=== PATIENT | female | born 1985 | race Caucasian/White ===

== ENCOUNTER 2017-08-26 17:14 | Emergency (ER) | payer MEDICAID ==
--- NOTE | 2017-08-26 18:02 | UC ---
Respiratory Complaint HPI - HPI Summary HPI Summary: 32 yo WF c/o worsening chest discomfort associated with productive cough with pleuritic CP x 1 week that started originally with URI 2 weeks prior but has been worsening steadily. - History of Current Complaint Chief Complaint: UCRespiratory Stated Complaint: URI Time Seen by Provider: 08/26/17 17:47 Hx Last Menstrual Period: current Onset/Duration: Gradual Onset, Lasting Weeks Severity Initially: Moderate Severity Currently: Moderate Pain Intensity: 0 - Allergies/Home Medications Allergies/Adverse Reactions: Allergies Allergy/AdvReac Type Severity Reaction Status Date / Time No Known Allergies Allergy Verified 08/26/17 17:31 Home Medications: Home Medications Acetaminophen/Dextromethorphan [Daytime Cold & Cough Liquid] 1 liq PO DAILY PRN 08/26/17 [History Confirmed 08/26/17] guaiFENesin [Mucinex] 600 mg PO DAILY PRN 08/26/17 [History Confirmed 08/26/17] PMH/Surg Hx/FS Hx/Imm Hx Previously Healthy: Yes - Surgical History Surgical History: Yes Surgery Procedure, Year, and Place: T&A, 2010, [facility] - Social History Alcohol Use: None Substance Use Type: None Smoking Status (MU): Never Smoked Tobacco - Immunization History Most Recent Influenza Vaccination: Not the Season Review of Systems Constitutional: Negative Skin: Negative Eyes: Negative ENT: Negative Respiratory: Cough, Other - B/L lower rib pains with cough Cardiovascular: Negative Gastrointestinal: Negative Genitourinary: Negative Motor: Negative Neurovascular: Negative Musculoskeletal: Negative Neurological: Negative Psychological: Negative Is Patient Immunocompromised?: No All Other Systems Reviewed And Are Negative: Yes Physical Exam Triage Information Reviewed: Yes Appearance: Ill-Appearing, Obese Vital Signs: Initial Vital Signs Temp 36.8 C 08/26/17 17:36 Pulse 84 08/26/17 17:36 Resp 18 08/26/17 17:36 BP 199/113 08/26/17 17:36 Pulse Ox 95 08/26/17 17:36 Eye Exam: Normal ENT Exam: Normal Dental Exam: Normal Neck exam: Normal Neck: Positive: 1 Respiratory: Positive: Rhonchi - Diffuse, Wheezing - expiratory Cardiovascular Exam: Normal Abdominal Exam: Normal Musculoskeletal Exam: Normal Neurological Exam: Normal Psychological Exam: Normal Skin Exam: Normal UC Diagnostic Evaluation - Laboratory O2 Sat by Pulse Oximetry: 95 Respiratory Course/Dx - Course Course Of Treatment: Pt may be developing bronchoPNA- will tx with Levaquin. Pt has no hx/ of HTN BP re-check was 160/98 but pt is acutely ill - Differential Dx/Diagnosis Provider Diagnoses: Bronchopneumonia. Elevated BP without dx of HTN- due to acute illness Discharge - Discharge Plan Condition: Stable Disposition: HOME Prescriptions: Levofloxacin TAB* [Levaquin TAB*] 750 mg PO DAILY 7 Days #7 tab Patient Education Materials: Acute Bronchitis (ED) Referrals: Fermin Roblero MD [Primary Care Provider] - Additional Instructions: take medication as directed. Please re-check your blood pressure with your PCP after your acute illness resolves in 1-2 weeks
[2017-08-26 18:04] VITALS: BP 160/98
== END 2017-08-26 18:25 | disposition home or self-care (01) ==
LOC: UCEAST 17:14
DX: J18.0 Bronchopneumonia, unspecified organism (principal); R03.0 Elevated blood-pressure reading, without diagnosis of hypertension
CPT/HCPCS: 99202; G0463

== ENCOUNTER 2017-09-23 16:21 | Emergency (ER) | payer MEDICAID, OTHER ==
[2017-09-23 17:04] VITALS: BP 193/114
--- NOTE | 2017-09-23 21:36 | UC ---
Franklin Vidales Nikita, scribed for Braeden Champagne MD on 09/23/17 at 1719 . Abdominal Pain Female HPI - HPI Summary HPI Summary: This patient is a 32 year old F presenting to [facility] with a chief complaint of intermittent R flank pain since yesterday. The CC is described as a sudden onset of pain and intermittent, starting in her R upper back, radiating to her R flank, and more frequent since 0400 today. The patient rates the pain 10/10 in severity at onset and has decreased to 5-6/10 currently. Symptoms aggravated by nothing. Symptoms alleviated by nothing. Patient reports nausea during severe pain. Patient denies dysuria, vomiting, diarrhea, urinary frequency, abdominal pain, constipation, vaginal bleeding or discharge. LMP was 2 weeks ago. - History of Current Complaint Chief Complaint: UCAbdominalPain Stated Complaint: SIDE ABDOMINAL AND PELVIC PAIN Time Seen by Provider: 09/23/17 17:10 Hx Obtained From: Patient Hx Last Menstrual Period: 2 wks ago Onset/Duration: Sudden Onset, Still Present Timing: Intermittent Episodes Lasting: Severity Initially: Severe - 10/10 Severity Currently: Moderate - 5-6/10 Pain Intensity: 10 Pain Scale Used: 0-10 Numeric Location: Other - upper back Radiates: Yes Radiates to: Flank - R Aggravating Factor(s): Nothing Alleviating Factor(s): Nothing Associated Signs and Symptoms: Positive: Other: - Patient reports nausea during severe pain. Patient denies dysuria, vomiting, diarrhea, urinary frequency, abdominal pain, constipation, vaginal bleeding or discharge. Allergies/Adverse Reactions: Allergies Allergy/AdvReac Type Severity Reaction Status Date / Time No Known Allergies Allergy Verified 09/23/17 17:04 Home Medications: Home Medications NK [No Home Medications Reported] 09/23/17 [History Confirmed 09/23/17] PMH/Surg Hx/FS Hx/Imm Hx Cardiovascular History: Hypertension Respiratory History: Other Other Respiratory History: No asthma - Surgical History Surgical History: Yes Surgery Procedure, Year, and Place: T&A, 2010, [facility] - Family History Known Family History: Positive: Hypertension, Diabetes - Social History Alcohol Use: None Substance Use Type: None Smoking Status (MU): Never Smoked Tobacco - Immunization History Most Recent Influenza Vaccination: Not the Season Review of Systems Gastrointestinal: Abdominal Pain - intermittent, R-sided, Nausea, Other - denies vomiting, diarrhea Genitourinary: Other - denies dysuria All Other Systems Reviewed And Are Negative: Yes Physical Exam - Summary Physical Exam Summary: VITAL SIGNS: Reviewed. GENERAL: ~Patient is a well-developed and nourished FEMALE who is lying comfortable in the stretcher. ~Patient is not in any acute respiratory distress. HEAD AND FACE: Normocephalic EYES: PERRLA, EOMI x 2. EARS: Hearing grossly intact. MOUTH: Oropharynx within normal limits. NECK: Supple, trachea is midline, no adenopathy, no JVD, no carotid bruit. CHEST: Symmetric, no tenderness at palpation LUNGS: Clear to auscultation bilaterally. No wheezing or crackles. CVS: Regular rate and rhythm, S1 and S2 present, no murmurs or gallops appreciated. ABDOMEN: Soft, non-tender. Bowel sounds are normal. No abdominal abnormal pulsations. EXTREMITIES: Full ROM in all major joints, no edema, no cyanosis or clubbing. NEURO: Alert and oriented x 3. No acute neurological deficits. Speech is normal and follows commands. SKIN: Dry and warm Triage Information Reviewed: Yes Vital Signs: Initial Vital Signs Temp 99.4 F 09/23/17 17:01 Pulse 82 09/23/17 17:01 Resp 18 09/23/17 17:01 BP 193/114 09/23/17 17:01 Pulse Ox 98 09/23/17 17:01 Abd Pain Female Course/Dx - Course Course Of Treatment: The patient was found to have increased BP in UC. The patient will be discharged to the ED for further workup. The patient denies ambulance and will go to the ED with her mother via car. Plan of care was discussed with the patient, and patient understands and agrees. All questions were answered to patient satisfaction. - Differential Dx/Diagnosis Differential Diagnosis: Constipation, Ovarian Cyst, Renal Colic, Urinary Tract Infection, Other - flank pain Provider Diagnoses: flank pain Discharge - Sign-Out/Discharge Documenting (check all that apply): Discharge - Discharge Plan Condition: Stable Disposition: HOME Patient Education Materials: Flank Pain (ED) Referrals: Fermin Roblero MD [Primary Care Provider] - Additional Instructions: Patient will be discharged to the ED for further assessment. - Billing Disposition and Condition Condition: STABLE Disposition: HOME The documentation as recorded by the Franklin ling Nikita accurately reflects the service I personally performed and the decisions made by me, Braeden Champagne MD.
== END 2017-09-23 17:40 | disposition home or self-care (01) ==
LOC: UCEAST 16:21
DX: M54.6 Pain in thoracic spine (principal); R11.0 Nausea; I10 Essential (primary) hypertension
CPT/HCPCS: 81003; 99212; G0463

== ENCOUNTER 2017-09-23 18:11 | Emergency (ER) | payer MEDICAID, OTHER ==
[2017-09-23 19:12] LABS: Urine Appearance Cloudy; Urine Blood Negative (Negative); Urine Color Yellow; Urine Ketones Negative (Negative); Urine Protein Negative (Negative); Urine Urobilinogen Negative (Negative)
[2017-09-23 19:17] LABS: Hematocrit 35 % (35-47); Hemoglobin 11.2 g/dl (12.0-16.0); Mean Corpuscular HGB Conc 32 g/dl (31-36); Mean Corpuscular Hemoglobin 23 pg (27-31); Mean Corpuscular Volume 72 fL (80-97); Mean Platelet Volume 7.3 um3 (7.4-10.4); Platelet Count 302 10^3/ul (150-450); Red Blood Count 4.83 10^6/ul (4.0-5.4); Red Cell Distribution Width 19 % (10.5-15); White Blood Count 10.2 10^3/ul (3.5-10.8)
[2017-09-23 19:48] LABS: ABS Basophils 0.1 10^3/ul (0-0.2); ABS Eosinophils 0.4 10^3/ul (0-0.6); ABS Lymphocytes 1.8 10^3/ul (1.0-4.8); ABS Monocytes 0.5 10^3/ul (0-0.8); ABS Neutrophils 7.5 10^3/ul (1.5-7.7); ABS Nucleated RBC 0 10^3/ul; Eosinophil % 3.7 % (0-6); Lymphocyte % 17.2 % (25-47); Nucleated Red Blood Cells % 0.1
[2017-09-23] MEDS ORDERED: NS 0.9% 1000 ML* 1,000 ML IV ONE (20:25)
[2017-09-23] MEDS ORDERED: cefTRIAXone(*) 1 GM in NS 0.9% 50 ML* 50 ML IVPB ONE (20:25)
--- NOTE | 2017-09-23 20:31 | ED ---
GI/ HPI - HPI Summary HPI Summary: 32-year-old female presents with right-sided abdominal pain for the past day. She states she has had a decreased appetite but now appetite is normal. She denies any nausea or vomiting. She denies any diarrhea or constipation. She denies any pain with urination or hematuria. She denies any vaginal discharge. She is not sexual active. She has never had this pain before. pain is intermittent. Sometimes it radiates to her right flank. She denies any previous abdominal surgeries or kidney stones. She denies any fevers. nothing makes the pain better or worst. She denies any chest pain or SOB. - History of Current Complaint Chief Complaint: EDAbdPain Time Seen by Provider: 09/23/17 20:13 Stated Complaint: ABD PAIN Hx Last Menstrual Period: 2 wks ago Pain Intensity: 4 - Allergy/Home Medications Allergies/Adverse Reactions: Allergies Allergy/AdvReac Type Severity Reaction Status Date / Time No Known Allergies Allergy Verified 09/23/17 17:04 PMH/Surg Hx/FS Hx/Imm Hx Endocrine/Hematology History: Denies: Hx Diabetes, Hx Thyroid Disease Cardiovascular History: Reports: Hx Hypertension Respiratory History: Denies: Hx Asthma, Hx Chronic Obstructive Pulmonary Disease (COPD) GI History: Denies: Hx Ulcer - Surgical History Surgery Procedure, Year, and Place: T&A, 2010, [facility] Infectious Disease History: No Infectious Disease History: Denies: Hx Clostridium Difficile, Hx Hepatitis, Hx Human Immunodeficiency Virus (HIV), Hx of Known/Suspected MRSA, Hx Shingles, Hx Tuberculosis, Traveled Outside the [place] in Last 30 Days - Social History Alcohol Use: None Substance Use Type: Reports: None Smoking Status (MU): Never Smoked Tobacco Review of Systems Negative: Fever Negative: Chest Pain Negative: Shortness Of Breath Positive: Abdominal Pain. Negative: Vomiting, Diarrhea, Nausea Negative: dysuria, flank pain All Other Systems Reviewed And Are Negative: Yes Physical Exam Triage Information Reviewed: Yes Vital Signs On Initial Exam: Initial Vitals Temp Pulse Resp BP Pulse Ox 98.5 F 85 16 191/69 98 09/23/17 18:14 09/23/17 18:14 09/23/17 18:14 09/23/17 18:14 09/23/17 18:14 Vital Signs Reviewed: Yes Appearance: Positive: Well-Appearing Skin: Positive: Warm, Dry Head/Face: Positive: Normal Head/Face Inspection Eyes: Positive: Normal, EOMI, DICK, Conjunctiva Clear ENT: Positive: Normal ENT inspection, Pharynx normal, TMs normal Respiratory/Lung Sounds: Positive: Clear to Auscultation, Breath Sounds Present Cardiovascular: Positive: Normal, RRR Abdomen Description: Positive: Soft, Other: - mild tenderness RLQ, no rebound, neg obturator sign. Negative: CVA Tenderness (R), CVA Tenderness (L) Bowel Sounds: Positive: Present Musculoskeletal: Positive: Normal Neurological: Positive: Normal Psychiatric: Positive: Normal Diagnostics - Vital Signs Vital Signs Temp Pulse Resp BP Pulse Ox 09/23/17 20:24 93 94 09/23/17 20:22 192/99 09/23/17 20:09 97.3 F 81 24 163/110 97 09/23/17 18:14 98.5 F 85 16 191/69 98 - Laboratory Lab Results: Lab Results 09/23/17 09/23/17 09/23/17 Range/Units 18:55 19:02 19:02 WBC 10.2 (3.5-10.8) 10^3/ul RBC 4.83 (4.0-5.4) 10^6/ul Hgb 11.2 L (12.0-16.0) g/dl Hct 35 (35-47) % MCV 72 L (80-97) fL MCH 23 L (27-31) pg MCHC 32 (31-36) g/dl RDW 19 H (10.5-15) % Plt Count 302 (150-450) 10^3/ul MPV 7.3 L (7.4-10.4) um3 Neut % (Auto) 73.7 (38-83) % Lymph % (Auto) 17.2 L (25-47) % [place] % (Auto) 4.5 (0-7) % Eos % (Auto) 3.7 (0-6) % Baso % (Auto) 0.9 (0-2) % Absolute Neuts (auto) 7.5 (1.5-7.7) 10^3/ul Absolute Lymphs (auto) 1.8 (1.0-4.8) 10^3/ul Absolute Monos (auto) 0.5 (0-0.8) 10^3/ul Absolute Eos (auto) 0.4 (0-0.6) 10^3/ul Absolute Basos (auto) 0.1 (0-0.2) 10^3/ul Absolute Nucleated RBC 0 10^3/ul Nucleated RBC % 0.1 Large Platelets Present Polychromasia 1+ Hypochromasia 1+ Anisocytosis 1+ Sodium 137 (133-145) mmol/L Potassium 3.9 (3.5-5.0) mmol/L Chloride 102 (101-111) mmol/L Carbon Dioxide 28 (22-32) mmol/L Anion Gap 7 (2-11) mmol/L BUN 13 (6-24) mg/dL Creatinine 0.89 (0.51-0.95) mg/dL Est GFR ( Amer) 95.1 (>60) Est GFR (Non-Af Amer) 74.0 (>60) BUN/Creatinine Ratio 14.6 (8-20) Glucose 83 (70-100) mg/dL Lactic Acid (0.5-2.0) mmol/L Calcium 9.5 (8.6-10.3) mg/dL Total Bilirubin 0.40 (0.2-1.0) mg/dL AST 14 (13-39) U/L ALT 11 (7-52) U/L Alkaline Phosphatase 63 (34-104) U/L C-Reactive Protein 54.29 H (< 5.00) mg/L Total Protein 7.6 (6.4-8.9) g/dL Albumin 4.2 (3.2-5.2) g/dL Globulin 3.4 (2-4) g/dL Albumin/Globulin Ratio 1.2 (1-3) Amylase 34 (29-103) U/L Lipase 16 (11.0-82.0) U/L Urine Color Yellow Urine Appearance Cloudy Urine pH 6.0 (5-9) Ur Specific [place] 1.020 (1.010-1.030) Urine Protein Negative (Negative) Urine Ketones Negative (Negative) Urine Blood Negative (Negative) Urine Nitrate Negative (Negative) Urine Bilirubin Negative (Negative) Urine Urobilinogen Negative (Negative) Ur Leukocyte Esterase Trace A (Negative) Urine WBC (Auto) 2+(11-20/hpf) A (Absent) Urine RBC (Auto) 2+(6-10/hpf) A (Absent) Ur Squamous Epith Cells Present A (Absent) Amorphous Crystals Present A (Absent) Urine Bacteria 1+ A (Absent) Urine Glucose Negative (Negative) 09/23/17 Range/Units 19:02 WBC (3.5-10.8) 10^3/ul RBC (4.0-5.4) 10^6/ul Hgb (12.0-16.0) g/dl Hct (35-47) % MCV (80-97) fL MCH (27-31) pg MCHC (31-36) g/dl RDW (10.5-15) % Plt Count (150-450) 10^3/ul MPV (7.4-10.4) um3 Neut % (Auto) (38-83) % Lymph % (Auto) (25-47) % Hartley % (Auto) (0-7) % Eos % (Auto) (0-6) % Baso % (Auto) (0-2) % Absolute Neuts (auto) (1.5-7.7) 10^3/ul Absolute Lymphs (auto) (1.0-4.8) 10^3/ul Absolute Monos (auto) (0-0.8) 10^3/ul Absolute Eos (auto) (0-0.6) 10^3/ul Absolute Basos (auto) (0-0.2) 10^3/ul Absolute Nucleated RBC 10^3/ul Nucleated RBC % Large Platelets Polychromasia Hypochromasia Anisocytosis Sodium (133-145) mmol/L Potassium (3.5-5.0) mmol/L Chloride (101-111) mmol/L Carbon Dioxide (22-32) mmol/L Anion Gap (2-11) mmol/L BUN (6-24) mg/dL Creatinine (0.51-0.95) mg/dL Est GFR ( Amer) (>60) Est GFR (Non-Af Amer) (>60) BUN/Creatinine Ratio (8-20) Glucose (70-100) mg/dL Lactic Acid 0.8 (0.5-2.0) mmol/L Calcium (8.6-10.3) mg/dL Total Bilirubin (0.2-1.0) mg/dL AST (13-39) U/L ALT (7-52) U/L Alkaline Phosphatase (34-104) U/L C-Reactive Protein (< 5.00) mg/L Total Protein (6.4-8.9) g/dL Albumin (3.2-5.2) g/dL Globulin (2-4) g/dL Albumin/Globulin Ratio (1-3) Amylase (29-103) U/L Lipase (11.0-82.0) U/L Urine Color Urine Appearance Urine pH (5-9) Ur Specific [place] (1.010-1.030) Urine Protein (Negative) Urine Ketones (Negative) Urine Blood (Negative) Urine Nitrate (Negative) Urine Bilirubin (Negative) Urine Urobilinogen (Negative) Ur Leukocyte Esterase (Negative) Urine WBC (Auto) (Absent) Urine RBC (Auto) (Absent) Ur Squamous Epith Cells (Absent) Amorphous Crystals (Absent) Urine Bacteria (Absent) Urine Glucose (Negative) Result Diagrams: 09/23/17 19:02 09/23/17 19:02 Lab Statement: Any lab studies that have been ordered have been reviewed, and results considered in the medical decision making process. - CT abd CT Interpretation: No Acute Changes CT Interpretation Completed By: Radiologist - Ultrasound No standard instances Ultrasound Interpretation: No Acute Changes - IMPRESSION: 1. LIMITED STUDY. 2. THE RIGHT OVARY IS NOT VISUALIZED. THE LEFT OVARY IS NOT WELL-VISUALIZED, WITH A QUESTIONABLE LEFT OVARIAN CYST. Ultrasound Interpretation Completed By: Radiologist NONI Course/Dx - Course Course Of Treatment: 32-year-old female presents with right-sided abdominal pain for the past day. She states she has had a decreased appetite but now appetite is normal. She denies any nausea or vomiting. She denies any diarrhea or constipation. She denies any pain with urination or hematuria. She denies any vaginal discharge. She is not sexual active. She has never had this pain before. pain is intermittent. Sometimes it radiates to her right flank. She denies any previous abdominal surgeries or kidney stones. She denies any fevers. nothing makes the pain better or worst. She denies any chest pain or SOB. on exam mild tenderness RLQ, neg CVA tenderness. neg obturator. labs wbc normal. crp elevated. urine shows uti. transvaginal u/s unable to visualize. CT normal. will treat as pyelo with flank pain. blood pressure elvated in ED so gave dose of HTCZ and will have follow up with primary. patient understand and agrees with plan. - Diagnoses Differential Diagnoses - Female: Appendicitis, Ovarian Cyst, Ovarian Torsion, Pyelonephritis, Urinary Tract Infection Provider Diagnoses: Pyelonephritis, Elevated blood pressure reading Discharge - Sign-Out/Discharge Documenting (check all that apply): Discharge - Discharge Plan Condition: Good Disposition: HOME Prescriptions: Ciprofloxacin TAB* [Cipro 500 MG TAB*] 500 mg PO BID #20 tab Patient Education Materials: Kidney Infection (ED) Print Language: TELUGU Referrals: Fermin Roblero MD [Primary Care Provider] - Additional Instructions: Take antibiotic twice a day for 10 days, starting tomorrow Take Tylenol or ibuprofen every 6 hours as needed for pain and fever Return to ED if develop any new or worsening symptoms - Billing Disposition and Condition Condition: GOOD Disposition: HOME
[2017-09-23] MEDS ORDERED: Iohexol 300* (CONTRAST) 10 ML SDV IV ONE (20:45)
--- NOTE | 2017-09-23 22:01 | RAD ---
HISTORY: Right lower quadrant pain COMPARISONS: None TECHNIQUE: Multiple transverse and longitudinal ultrasound images were obtained of the pelvis using grayscale and color Doppler imaging using the endovaginal transducer. FINDINGS: The study is limited by patient body habitus. UTERUS: The uterus measures 7.6 x 4 x 2.9 cm. The uterus is normal in shape, size, contour, and echotexture. Cervical nabothian cysts are noted. ENDOMETRIUM: The endometrial stripe is smooth. The endometrium measures 1.1 cm in thickness. CUL-DE-SAC: There is no free fluid within the cul-de-sac. RIGHT OVARY: The right ovary is not well-visualized LEFT OVARY: The left ovary is not well-visualized. There may be left ovarian cyst measuring 2.5 cm. BLADDER: The bladder is not well visualized. OTHER: None IMPRESSION: 1. LIMITED STUDY. 2. THE RIGHT OVARY IS NOT VISUALIZED. THE LEFT OVARY IS NOT WELL-VISUALIZED, WITH A QUESTIONABLE LEFT OVARIAN CYST.
[2017-09-23] MEDS ORDERED: cefTRIAXone 1000 MG SYRINGE IVPB ONCE IVPB ONE ×2 (23:00)
[2017-09-23 23:36] VITALS: BP 196/99
[2017-09-23] MEDS ORDERED: Hydrochlorothiazide TAB* 25 MG PO ONE (23:37)
--- NOTE | 2017-09-24 07:13 | RAD ---
CLINICAL HISTORY: Right lower quadrant pain COMPARISON: None TECHNIQUE: Multiple contiguous axial CT scans were obtained of the abdomen and pelvis after the administration of intravenous contrast. Coronal and sagittal multiplanar reformations are submitted for review. Oral contrast was not administered. Delayed images were obtained through the abdomen and pelvis. FINDINGS: Evaluation is somewhat limited by beam hardening artifact from body habitus and by patient motion. LUNG BASES: The lung bases are clear. LIVER: The liver is diffusely low in attenuation compared to the spleen. There are no focal hepatic parenchymal masses. The liver measures 20 cm in long axis. BILE DUCTS: There is no intrahepatic or extrahepatic biliary dilatation. GALLBLADDER: The gallbladder is normal, without pericholecystic inflammatory change. PANCREAS: The pancreas is normal, without mass or ductal dilatation. SPLEEN: The spleen is at the upper limits of normal in size and is homogeneous in attenuation.. UPPER GI TRACT: Evaluation of the gastrointestinal tract is limited by incomplete gastric distention. The upper GI tract is unremarkable. SMALL BOWEL AND MESENTERY: The small bowel is normal in contour, course, and caliber. There is no obstruction or dilatation. COLON: The colon is normal in contour, course, caliber. There is no pericolonic inflammatory change. There is a tubular, vermiform, hollow viscus that is blind ending, and originates from the cecum, consistent with a normal appendix. There is no periappendiceal inflammatory change. This is best seen on axial images 64 through 71. ADRENALS: Normal bilaterally. KIDNEYS: The kidneys are normal in shape, size, contour, and axis. There is no hydronephrosis or nephrolithiasis. BLADDER: The bladder is incompletely distended but is grossly normal. PELVIC ORGANS: The uterus and adnexa are grossly normal for technique. AORTA: The aorta is normal. IVC: Unremarkable LYMPH NODES: There are mildly enlarged bilateral inguinal lymph nodes measuring up to 1.3 cm in short axis. ABDOMINAL WALL: There is no evidence for abdominal wall hernia. BONES AND SOFT TISSUES: Unremarkable OTHER: None IMPRESSION: 1. HEPATOMEGALY WITH FATTY INFILTRATION OF THE LIVER. 2. MILDLY ENLARGED BILATERAL INGUINAL LYMPH NODES. 3. NORMAL APPENDIX.
--- NOTE | 2017-09-27 09:38 | ED ---
Progress - Progress Note Progress Note: Radiology's final report revealed "impression #1 hepatomegaly with fatty infiltration of liver number to mildly enlarged bilateral inguinal lymph nodes # 3 normal appendix". Patient was discharged with diagnosis of UTI/pyelonephritis and started on Cipro. Her note indicate CT revealed "no acute changes" Left message to call to up-to-date CT results (make her aware of liver findings ) and follow-up symptoms as urine cx is "no growth". No further action at this time. Course/Dx - Course Course Of Treatment: 32-year-old female presents with right-sided abdominal pain for the past day. She states she has had a decreased appetite but now appetite is normal. She denies any nausea or vomiting. She denies any diarrhea or constipation. She denies any pain with urination or hematuria. She denies any vaginal discharge. She is not sexual active. She has never had this pain before. pain is intermittent. Sometimes it radiates to her right flank. She denies any previous abdominal surgeries or kidney stones. She denies any fevers. nothing makes the pain better or worst. She denies any chest pain or SOB. on exam mild tenderness RLQ, neg CVA tenderness. neg obturator. labs wbc normal. crp elevated. urine shows uti. transvaginal u/s unable to visualize. CT normal. will treat as pyelo with flank pain. blood pressure elvated in ED so gave dose of HTCZ and will have follow up with primary. patient understand and agrees with plan. - Diagnoses Provider Diagnoses: Pyelonephritis, Elevated blood pressure reading Discharge - Sign-Out/Discharge Documenting (check all that apply): Post-Discharge Follow Up - Discharge Plan Condition: Good Disposition: HOME Prescriptions: Ciprofloxacin TAB* [Cipro 500 MG TAB*] 500 mg PO BID #20 tab Patient Education Materials: Kidney Infection (ED) Print Language: SRI LANKAN Referrals: Fermin Roblero MD [Primary Care Provider] - Additional Instructions: Take antibiotic twice a day for 10 days, starting tomorrow Take Tylenol or ibuprofen every 6 hours as needed for pain and fever Return to ED if develop any new or worsening symptoms - Billing Disposition and Condition Condition: GOOD Disposition: HOME
== END 2017-09-23 23:55 | disposition home or self-care (01) ==
LOC: ED 18:11
DX: N12 Tubulo-interstitial nephritis, not specified as acute or chronic (principal); R03.0 Elevated blood-pressure reading, without diagnosis of hypertension; R10.84 Generalized abdominal pain; Z86.79 Personal history of other diseases of the circulatory system
CPT/HCPCS: 36415; 74177; 76830; 80053; 81003; 81015; 82150; 83605; 83690; 84702; 85025; 85060; 86140; 87086; 99284; A9270-GY; J0696; Q9967

== ENCOUNTER 2018-06-25 16:34 | Emergency (ER) | payer OTHER ==
[2018-06-25 16:49] VITALS: BP 201/105
--- NOTE | 2018-06-25 17:04 | UC ---
UC Dental HPI - HPI Summary HPI Summary: right lower wism tooth pain with swelling-tooth is broken---has been getting some pain relief with evolve - History of Current Complaint Chief Complaint: UCDentalProblem Stated Complaint: DENTAL PAIN Time Seen by Provider: 06/25/18 16:59 Hx Obtained From: Patient Hx Last Menstrual Period: now ?: No Onset/Duration: Sudden Onset, Lasting Days, Still Present Pain Intensity: 4 Pain Scale Used: 0-10 Numeric Aggravating Factor(s): Nothing Alleviating Factor(s): OTC Meds Related History: Previous Dental Care on Same Tooth, Swelling - Allergies/Home Medications Allergies/Adverse Reactions: Allergies Allergy/AdvReac Type Severity Reaction Status Date / Time No Known Allergies Allergy Verified 06/25/18 16:49 PMH/Surg Hx/FS Hx/Imm Hx Previously Healthy: No Cardiovascular History: Hypertension - Surgical History Surgical History: Yes Surgery Procedure, Year, and Place: T&A, 2010, [facility] - Family History Known Family History: Positive: None - Social History Occupation: Unemployed Lives: With Family Alcohol Use: None Substance Use Type: None Smoking Status (MU): Never Smoked Tobacco - Immunization History Most Recent Influenza Vaccination: Not the Season Review of Systems All Other Systems Reviewed And Are Negative: Yes Constitutional: Positive: Negative Skin: Positive: Negative Eyes: Positive: Negative ENT: Positive: Dental Pain Respiratory: Positive: Negative Cardiovascular: Positive: Negative Gastrointestinal: Positive: Negative Genitourinary: Positive: Negative Motor: Positive: Negative Neurovascular: Positive: Negative Musculoskeletal: Positive: Negative Neurological: Positive: Negative Psychological: Positive: Negative Is Patient Immunocompromised?: No Physical Exam Triage Information Reviewed: Yes Appearance: Well-Appearing, Pain Distress, Obese Vital Signs: Initial Vital Signs Temp 97.7 F 06/25/18 16:46 Pulse 87 06/25/18 16:46 Resp 24 06/25/18 16:46 BP 201/105 06/25/18 16:46 Pulse Ox 97 06/25/18 16:46 Vital Signs Reviewed: Yes Eye Exam: Normal Eyes: Positive: Conjunctiva Clear ENT Exam: Normal ENT: Positive: Normal ENT inspection, Hearing grossly normal, Pharynx normal, Dental tenderness, Uvula midline. Negative: Trismus, Muffled voice, Hoarse voice, Sinus tenderness Dental Exam: Other Dental: Positive: Percussion Tenderness @, Gross Decay/Caries @, Abscess @ Neck exam: Normal Neck: Positive: Supple, Nontender, No Lymphadenopathy Respiratory Exam: Normal Respiratory: Positive: Chest non-tender, Normal breath sounds, No respiratory distress, No accessory muscle use Cardiovascular Exam: Normal Cardiovascular: Positive: Pulses Normal, Brisk Capillary Refill Musculoskeletal Exam: Normal Musculoskeletal: Positive: Strength Intact, ROM Intact, No Edema Neurological Exam: Normal Neurological: Positive: Alert, Muscle Tone Normal Psychological Exam: Normal Skin Exam: Normal Dental Complaint Course/Dx - Course Course Of Treatment: clindamycin, naproxen, warm compress, follow with dentist, 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), pcp regarding hypertension - Differential Dx/Diagnosis Provider Diagnosis: Hypertension, Morbid obesity, Dental abscess Discharge - Sign-Out/Discharge Documenting (check all that apply): Patient Departure All imaging exams completed and their final reports reviewed: No Studies - Discharge Plan Condition: Stable Disposition: HOME Prescriptions: Clindamycin Cap(NF) [Clindamycin Cap 300 mg Cap(NF)] 300 mg PO QID #28 cap Naproxen TAB* [Naprosyn 250 mg TAB*] 500 mg PO Q12H PRN #30 tab PRN Reason: pain Patient Education Materials: Dental Abscess (ED), Hypertension (ED), Toothache (ED) Referrals: [facility] [Outside] - 3 Days [facility]YSICIAN REFERRAL [Outside] - 3 Days Alcides Escobedo MD [Medical Doctor] - 3 Days - Billing Disposition and Condition Condition: STABLE Disposition: Home
[2018-06-25] MEDS ORDERED: Clindamycin CAP* 150 MG PO ONE ×2 (17:12→17:13)
[2018-06-25] MEDS ORDERED: HYDROcodone/ACETAMIN 5-325 MG* 1 TAB PO ONE (17:16)
== END 2018-06-25 17:30 | disposition home or self-care (01) ==
LOC: UCEAST 16:34
DX: K04.7 Periapical abscess without sinus (principal); I10 Essential (primary) hypertension; E66.01 Morbid (severe) obesity due to excess calories
CPT/HCPCS: 99213; A9270-GY; G0463

== ENCOUNTER 2018-08-05 13:12 | Emergency (ER) | payer OTHER ==
[2018-08-05] MEDS ORDERED: Albuterol/Ipratropium NEB.SOL* Albuterol 2.5 MG/Ipratropium 0.5 MG 3 ML INH ONE (13:36)
--- NOTE | 2018-08-05 13:43 | UC ---
Respiratory Complaint HPI - HPI Summary HPI Summary: 33 yo, obese patient with c/o 3 days of cough, difficulty breathing. 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 - History of Current Complaint Chief Complaint: UCRespiratory Stated Complaint: RESP ISSUE Time Seen by Provider: 08/05/18 13:27 Hx Last Menstrual Period: current Pain Intensity: 0 - Allergies/Home Medications Allergies/Adverse Reactions: Allergies Allergy/AdvReac Type Severity Reaction Status Date / Time No Known Allergies Allergy Verified 08/05/18 13:31 PMH/Surg Hx/FS Hx/Imm Hx Previously Healthy: Yes - obesity Cardiovascular History: Hypertension - Surgical History Surgical History: Yes Surgery Procedure, Year, and Place: T&A, 2010, [facility] - Family History Known Family History: Positive: None, Cardiac Disease, Hypertension, Diabetes - Social History 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 Negative: Fever Skin: Positive: Negative Eyes: Positive: Negative ENT: Positive: Negative Respiratory: Positive: Negative, Cough. Negative: Shortness Of Breath Cardiovascular: Positive: Negative. Negative: Chest Pain Gastrointestinal: Positive: Negative Genitourinary: Positive: Negative Motor: Positive: Negative Neurovascular: Positive: Negative Musculoskeletal: Positive: Negative Neurological: Positive: Negative Psychological: Positive: Negative Is Patient Immunocompromised?: No Physical Exam - Summary Physical Exam Summary: Appearance: The patient is well-appearing, is in no pain or distress, and is well-nourished. Eyes: Conjunctiva are clear. Pupils are equal and reactive to light and accommodation. Extra ocular muscle movement is intact. ENT: The hearing is grossly normal, the pharynx is normal, and the TMs are normal. There is no muffled or hoarse voice. No stridor. Neck: The neck is supple and there is no lymphadenopathy. Respiratory: The chest is nontender to palpation and without crepitus. The lungs show an extended expiratory phase; rhonchi; no rales. Cardiovascular: Heart sounds reveal a regular rate and rhythm. There are no clicks, rubs or murmurs. There are no carotid bruits or thrills. Circulation is grossly intact. Abdomen: The abdomen is soft and nontender. There is no organomegaly. Bowel sounds are present and within normal limits. No point tenderness at McBurneys point. Musculoskeletal: Strength is intact. The patient moves all extremities. x. Neurological: The patient is alert. Motor and sensory are examination grossly intact. Speech is normal. Psychological: The patient displays age appropriate behavior Skin: Negative for rashes. Triage Information Reviewed: Yes Vital Signs: Initial Vital Signs Temp 98.8 F 08/05/18 13:27 Pulse 86 08/05/18 13:27 Resp 20 08/05/18 13:27 Pulse Ox 98 08/05/18 13:27 Diagnostic Evaluation - Laboratory O2 Sat by Pulse Oximetry: 98 Respiratory Course/Dx - Course Course Of Treatment: 33-year-old obese female with complaints of 3 days of continuous cough and wheezing getting worse. Patient denies history of asthma. Vital signs are stable and she is afebrile. My diagnosis is bronchitis with bronchospasm. I will treat her with albuterol, and a spacer. MEDICATIONS REVIEWED. BLOOD PRESSURE STATUES REVIEWED. Patient needs to recheck with primary care over the next month for follow up. - Differential Dx/Diagnosis Differential Diagnosis/HQI/PQRI: Asthma, Bronchitis, Influenza Provider Diagnosis: Bronchospasm with bronchitis, acute Discharge - Sign-Out/Discharge Documenting (check all that apply): Patient Departure All imaging exams completed and their final reports reviewed: No Studies - Discharge Plan Condition: Stable Disposition: HOME Prescriptions: Albuterol HFA INHALER* [Ventolin HFA Inhaler*] 1 - 2 puff INH Q4H PRN #1 mdi PRN Reason: Shortness Of Breath Inhaler, Assist Devices [Aerochamber Mv] 1 mis XX Q6HR #1 mis Patient Education Materials: Acute Bronchitis (ED), Bronchospasm (ED) Referrals: Fermin Roblero MD [Primary Care Provider] - Additional Instructions: WE DISCUSSED: PLEASE SEEK CARE AT THE EMERGENCY DEPARTMENT IF SYMPTOMS WORSEN OR IF NEW SYMPTOMS DEVELOP. FOLLOW UP WITH YOUR PRIMARY CARE PHYSICIAN IF CONDITION CONTINUES BEYOND 3 DAYS WITHOUT IMPROVEMENT. YOUR DIAGNOSIS IS: BRONCHOSPASM, BRONCHITIS; ELEVATED BLOOD PRESSURE YOUR PRESCRIPTION RECOMMENDATION IS: ALBUTEROL AND A SPACER OTHER INSTRUCTIONS: Over the next month you need to recheck your blood pressure to make sure it's not more than 120/80. Your blood pressure today is 160/90. . Use the spacer, 2 puffs 4 times a day. Stay away from any smoke or other irritants. STAND UNDER SHOWER STREAM TO LOOSEN SECRETIONS. USE A VAPORIZOR. STAY AWAY FROM ANY SMOKE OR IRRITANTS. USE SALINE NASAL SPRAY TO KEEP FLOW OF MUCOUS FROM NOSTRILS AND SINUSES. CONSIDER USING NETI POT TO HELP WITH ALLERGIES AND CONGESTION IN THE NOSE. USE THIS THREE TIMES A WEEK. YOU CAN GET THIS AT [facility] IN [place] OR VARIOUS DRUGSTORES. DRINK LOTS OF WARM FLUIDS USEFUL HOME REMEDIES: WARM WATER GARGLES, WITH TSP OF SALT PER 8 OUNCES OF WATER, GARGLE FOR A FEW SECONDS AND SPIT OUT; GARGLE AND SPIT OUT; EVERY THREE HOURS. AND/OR: WARM WATER OR TEA, HONEY AND LEMON; 2-3 CUPS A DAY. RE-CHECK IN 1O DAYS NEEDED. RE-CHECK SOONER IF INCREASED PAIN OR TEMPERATURE. - Billing Disposition and Condition Condition: STABLE Disposition: Home
[2018-08-05 13:44] VITALS: BP 160/90
[2018-08-05 13:54] LABS: Influenza A Molecular NEGATIVE (Negative); Influenza B Molecular NEGATIVE (Negative)
== END 2018-08-05 14:39 | disposition home or self-care (01) ==
LOC: UCEAST 13:12
DX: J20.9 Acute bronchitis, unspecified (principal); I10 Essential (primary) hypertension
CPT/HCPCS: 99212; A9270-GY; G0463

== ENCOUNTER → 2019-03-01 10:30 | Day surgery (SDC) | payer OTHER ==
[~2019-03-01 10:30] MED LIST: Buffered Lidocaine 1% SYRIN* 1 ML/SYRINGE INTRADERM ONE; Flumazenil* 0.1 MG/ML 5 ML MDV ONE; KETAMINE HCL* 50 MG/ML 10 ML VIAL ONE; Lactated Ringers 1000 ML Bag* 1,000 ML IV SCH; Lidocaine 4% TOPICAL* 50 ML TOP.SOLN ONE; Midazolam* 1 MG/ML 2 ML VIAL (2 MG) ONE; Naloxone* 0.4 MG/ML 1 ML VIAL IV PRN
[2019-03-01 14:01] VITALS: BP 131/70
--- NOTE | 2019-03-01 20:00 | PRO ---
CC: Dr. Mary Joseph * ESOPHAGOGASTRODUODENOSCOPY REPORT: DATE OF PROCEDURE: 03/01/19 - [facility] PRIMARY CARE PHYSICIAN: Dr. Mary Joseph. INDICATION FOR PROCEDURE: Pre-bariatric eval. PROCEDURE PERFORMED: Complete esophagogastroduodenoscopy with biopsies. MEDICATIONS GIVEN: Please see anesthesia record. DESCRIPTION OF PROCEDURE: After the EGD procedure including the risks, benefits , and alternatives with the risks not limited to perforation, surgery, missed lesions, and/or were explained to the patient, written informed consent was obtained, IV medication was given, and a bite-block was placed between the teeth. I initially attempted to pass the adult gastroscope through the oropharynx; however, she was quite gaggy and I switched to the pediatric XP scope. This was much better facilitating esophageal intubation. I was able to successfully intubate the esophagus. The esophagus was normal in appearance. The GE junction and Z-line were intact. There was no large hiatal hernia associated with this. The scope was advanced through the lower esophageal sphincter into the stomach. Direct views were normal on antegrade and retroflex views. Biopsies were taken for CLOtesting. The scope was then advanced through the widely patent pylorus into the duodenal bulb, C-loop, distal duodenum. These were normal in appearance. The scope was then removed from the patient. She tolerated the procedure well. She returned to the recovery room in stable condition. IMPRESSION: 1. Complete esophagogastroduodenoscopy with biopsies. 2. Normal esophagogastroduodenoscopy. Biopsy taken for CLOtesting. RECOMMENDATIONS: Proceed with bariatric evaluation with Dr. Pimentel. [id number]/[facility] #: [id number] [facility]ITAL[facility]
== END | disposition home or self-care (01) ==
LOC: OR 10:30
PROVIDERS: ATTEND Internal Medicine Gastroenterology
DX: Z01.818 Encounter for other preprocedural examination (principal); E66.01 Morbid (severe) obesity due to excess calories; Z68.45 Body mass index [BMI] 70 or greater, adult; I15.8 Other secondary hypertension; I10 Essential (primary) hypertension; G47.33 Obstructive sleep apnea (adult) (pediatric)
CPT/HCPCS: 81025; 87077; J2250

== ENCOUNTER 2019-04-11 19:41 | Emergency (ER) | payer OTHER ==
--- OUTSIDE RECORDS SUMMARY | 2019-04-11 19:48 | XMS REPORT | Continuity of Care Document ---
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 Problems Description No Information Available Social History Type Date Description Comments Sex Unknown Tobacco Use Start: Unknown Patient has never smoked Smoking Status Reviewed: 01/01/19 Patient has never smoked Allergies, Adverse Reactions, Alerts Description No Known Drug Allergies Medications Active Medications SIG Qnty Indications Ordering Date Provider Rupert Echeverria, 325(65Fe) mg Tablets MD Yanet Amlodipine Besylate Mary Joseph, 10mg Tablets Hydrochlorothiazide Mary Joseph, 25mg Tablets Lisinopril Mary Joseph, 20mg Tablets Vitamin D3 Juwan, [id number] Capsules MD Yanet Albuterol Sulfate HFA inhale 1 to 2 Unknown 108(90Base) puffs by mouth mcg/Act Aerosol every 4 hours if needed for shortness of breath Immunizations Description No Information Available Vital Signs Date Vital Result Comment 01/01/2019 8:42am Height 61.5 inches 5'1.50" Weight 431.00 lb BP Systolic 147 mmHg BP Diastolic 73 mmHg Heart Rate 79 /min BMI (Body Mass Index) 80.1 kg/m2 Results Test Date Facility Test Result H/L Range Note Laboratory test finding 03/01/2019 [facility] Clotest SEE RESULT BELOW 1 1 SEE RESULT BELOW Name: ANTONIETTA GONZALEZ : [address]: Sammy Steinberg DO Acct: [id number] Unit: [id number] AGE: 33 Location: OR Re03/01/19 SEX: F Status: REG SDC SPEC: [id number] JENNIFER: 03/01/19-1305 [facility] DR: Sammy Steinberg DO REQ: [id number] RECD: 03/01/19 STATUS: FRANKLYN DELGADILLO DR: Mary Joseph MD _ SOURCE: GAS ANTRUM SPDESC: ORDERED: Clotest Procedure Result Reported Site Clotest Final 03/02/19912 ML Clotest Negative * - Main Lab . END OF REPORT DEPARTMENT OF PATHOLOGY, [address] [place] [address] Reilly Villa M.D. Director [facility] # [id number] SEE RESULT BELOW Name: ANTONIETTA GONZALEZ : [address]: Sammy Steinberg DO Acct: [id number] Unit: [id number] AGE: 33 Location: OR Re03/01/19 SEX: F Status: REG SDC SPEC: [id number] JENNIFER: 03/01/19-[address]: Sammy Steinberg DO REQ: [id number] RECD: 03/01/19-1317 STATUS: FRANKLYN DELGADILLO DR: Mary Joseph MD _ SOURCE: GAS ANTRUM SPDESC: ORDERED: Clotest Procedure Result Reported Site Clotest Final 03/02/19922 ML Clotest Negative * ML - Main Lab . END OF REPORT DEPARTMENT OF PATHOLOGY, [address] [place] [address] Reilly Villa M.D. Director [facility] # [id number] Procedures Description No Information Available Medical Devices Description No Information Available Encounters Type Date Location Provider Dx Diagnosis Office Visit 01/01/2019 Gastroenterology Sammy Steinberg, Z01.818 Encounter for other [facility] DO preprocedural examination I15.8 Other secondary hypertension E66.01 Morbid (severe) obesity due to excess calories G47.30 Sleep apnea, unspecified Z68.45 Body mass index (BMI) 70 or greater, adult Assessments Date Code Description Provider 01/01/2019 Z01.818 Encounter for other preprocedural examination Sammy Steinberg, DO 01/01/2019 I15.8 Other secondary hypertension Sammy Steinberg, DO 01/01/2019 E66.01 Morbid (severe) obesity due to excess calories Sammy Steinberg, DO 01/01/2019 G47.30 Sleep apnea, unspecified Sammy Steinberg DO 01/01/2019 Z68.45 Body mass index (BMI) 70 or greater, adult Sammy Steinberg DO Plan of Treatment No Information Available Functional Status Description No Information Available Mental Status Description No Information Available Referrals Description No Information Available
[2019-04-11 20:07] VITALS: BP 157/92
--- NOTE | 2019-04-11 20:47 | UC ---
Dental HPI - HPI Summary HPI Summary: Patient is a 34yo female presenting with right lower tooth pain x 3 days. Patient notes headache, pain in the right ear and right lower jaw, and tenderness of right side of neck. Denies fever, chills, nausea, vomiting, and drainage from the tooth. Patient states she took 3 doses over two days ago of an unknown antibiotic that was left over from her 's prescription when he had a tooth abscess. - History of Current Complaint Chief Complaint: UCDentalProblem Stated Complaint: TOOTH PAIN Hx Obtained From: Patient Hx Last Menstrual Period: January 2019 Onset/Duration: Gradual Onset, Lasting Days Pain Intensity: 8 Pain Scale Used: 0-10 Numeric - Allergies/Home Medications Allergies/Adverse Reactions: Allergies Allergy/AdvReac Type Severity Reaction Status Date / Time No Known Allergies Allergy Verified 04/11/19 20:07 Home Medications: Home Medications Cyanocobalamin TAB* [Vitamin B12 TAB*] 1,000 mcg PO DAILY 04/11/19 [History Confirmed 04/11/19] Poly Iron* 1 tab PO DAILY 04/11/19 [History Confirmed 04/11/19] metFORMIN* [Glucophage 500 MG TAB *] 500 mg PO TID 04/11/19 [History Confirmed 04/11/19] PMH/Surg Hx/FS Hx/Imm Hx Endocrine History: Diabetes Cardiovascular History: Hypertension - Surgical History Surgical History: Yes Surgery Procedure, Year, and Place: T&A, 2010, [facility] - Family History Known Family History: Positive: None, Cardiac Disease, Hypertension, Diabetes - Social History Alcohol Use: None Alcohol Amount: 1 DRINK YEARLY Substance Use Type: None Smoking Status (MU): Never Smoked Tobacco - Immunization History Most Recent Influenza Vaccination: Not the Season Review of Systems All Other Systems Reviewed And Are Negative: Yes Constitutional: Positive: Negative. Negative: Fever, Chills, Fatigue Eyes: Positive: Negative ENT: Positive: Dental Pain, Ear Ache. Negative: Sore Throat, Nasal Discharge, Sinus Congestion, Sinus Pain/Tenderness Respiratory: Positive: Negative Cardiovascular: Positive: Negative Gastrointestinal: Positive: Negative. Negative: Vomiting, Nausea Neurological: Positive: Headache Physical Exam Triage Information Reviewed: Yes Appearance: Well-Appearing, No Pain Distress, Obese Vital Signs: Initial Vital Signs Temp 97.8 F 04/11/19 20:01 Pulse 90 10/09/19 20:01 Resp 22 04/11/19 20:01 BP 157/92 04/11/19 20:01 Pulse Ox 100 04/11/19 20:01 Vital Signs Reviewed: Yes Eyes: Positive: Conjunctiva Clear ENT: Positive: Hearing grossly normal, Pharynx normal, TMs normal, Dental tenderness - tenderness of tooth #32. the tooth is also fractured. no drainage or fluctance noted. mild erythema and tenderness of gumline., Uvula midline. Negative: Nasal congestion, Nasal drainage Neck: Positive: Supple, Tenderness @ - right anterior cervical lymph node, Enlarged Nodes @ - right anterior cervical node Respiratory Exam: Normal Respiratory: Positive: Lungs clear, Normal breath sounds, No respiratory distress, No accessory muscle use. Negative: Crackles, Rhonchi, Stridor, Wheezing Cardiovascular Exam: Normal Cardiovascular: Positive: RRR. Negative: Tachycardia Neurological: Positive: Alert Psychological: Positive: Age Appropriate Behavior Skin Exam: Normal Dental Complaint Course/Dx - Course Course Of Treatment: I instructed the patient to take Augmentin as prescribed to prevent her recurrent dental abscess from progressing. I educated her on not taking left over antibiotics and to finish her entire prescription. Directed her to follow up with a dentist as soon as possible for further treatment. Instructed her to return or go to the ED if symptoms worsen. Patient voiced understanding and agreed to the treatment plan. - Differential Dx/Diagnosis Provider Diagnosis: Fractured tooth, Tooth ache Discharge ED - Sign-Out/Discharge Documenting (check all that apply): Patient Departure All imaging exams completed and their final reports reviewed: No Studies - Discharge Plan Condition: Stable Disposition: HOME Prescriptions: Amoxicillin/Clavulanate TAB* [Augmentin TAB 875*] 875 mg PO BID #14 tab Patient Education Materials: Dental Abscess (ED), Toothache (ED) Referrals: Mary Joseph MD [Primary Care Provider] - If Needed Additional Instructions: As discussed, Take Augmentin as prescribed to prevent spread of possible infection of your tooth. Be sure to complete the entire course of antibiotics, even if your symptoms begin to resolve. You may continue to take ibuprofen as directed for pain relief. It is important that you follow up with a dentist as soon as possible for further treatment. Go to the emergency room if you experience fever, nausea, vomiting, or worsening pain. - Billing Disposition and Condition Condition: STABLE Disposition: Home
== END 2019-04-11 21:15 | disposition home or self-care (01) ==
LOC: UCEAST 19:41
DX: S02.5XXA Fracture of tooth (traumatic), initial encounter for closed fracture (principal); E11.9 Type 2 diabetes mellitus without complications; E66.9 Obesity, unspecified; I10 Essential (primary) hypertension; Z79.84 Long term (current) use of oral hypoglycemic drugs; X58.XXXA Exposure to other specified factors, initial encounter; Y92.9 Unspecified place or not applicable
CPT/HCPCS: 99213; G0463

== ENCOUNTER 2019-04-12 21:32 | Emergency (ER) | payer OTHER ==
[2019-04-12 21:46] VITALS: BP 161/94
--- NOTE | 2019-04-12 21:57 | UC ---
[facility] Dental HPI - HPI Summary HPI Summary: Pt presents with c/o worsening right dental pain. Pt was seen by Rosalinda ELKINS yesterday and given amox and told to take ibuprofen for pain managements. Pt states that ibuprofen is not helping with pain. - History of Current Complaint Chief Complaint: UCDentalProblem Stated Complaint: DENTAL PAIN Time Seen by Provider: 04/12/19 21:51 Hx Obtained From: Patient Hx Last Menstrual Period: January 2019 ?: No Onset/Duration: Sudden Onset, Still Present, Worse Since - one day Severity: Severe Pain Intensity: 10 Aggravating Factor(s): Heat, Chewing - Allergies/Home Medications Allergies/Adverse Reactions: Allergies Allergy/AdvReac Type Severity Reaction Status Date / Time No Known Allergies Allergy Verified 04/12/19 21:44 PMH/Surg Hx/FS Hx/Imm Hx Previously Healthy: Yes - Surgical History Surgical History: Yes Surgery Procedure, Year, and Place: T&A, 2010, [facility] - Family History Known Family History: Positive: None, Cardiac Disease, Hypertension, Diabetes - Social History Occupation: Unemployed Lives: With Family Alcohol Use: None Alcohol Amount: 1 DRINK YEARLY Substance Use Type: None Smoking Status (MU): Never Smoked Tobacco Have You Smoked in the Last Year: No - Immunization History Most Recent Influenza Vaccination: Not the Season Review of Systems All Other Systems Reviewed And Are Negative: Yes Constitutional: Positive: Negative Skin: Positive: Negative Eyes: Positive: Negative ENT: Positive: Dental Pain Respiratory: Positive: Negative Cardiovascular: Positive: Negative Gastrointestinal: Positive: Negative Genitourinary: Positive: Negative Motor: Positive: Negative Neurovascular: Positive: Negative Musculoskeletal: Positive: Negative Neurological: Positive: Negative Psychological: Positive: Negative Is Patient Immunocompromised?: No Physical Exam Triage Information Reviewed: Yes Appearance: Pain Distress, Obese Vital Signs: Initial Vital Signs Temp 98.6 F 04/12/19 21:40 Pulse 87 04/12/19 21:40 Resp 30 04/12/19 21:40 BP 161/94 04/12/19 21:40 Pulse Ox 100 04/12/19 21:40 Vital Signs Reviewed: Yes Eye Exam: Normal ENT: Positive: Hearing grossly normal Dental: Positive: Percussion Tenderness @, Dental Fracture @ Neck exam: Normal Respiratory: Positive: No respiratory distress Cardiovascular Exam: Normal Musculoskeletal Exam: Normal Neurological Exam: Normal Psychological Exam: Normal Skin Exam: Normal Dental Complaint Course/Dx - Course Course Of Treatment: I discussed with the pt the need to follow up with a dental care provider as soon as possible. Pt verbalized understanding and agreed to plan of care - Differential Dx/Diagnosis Differential Diagnosis/Dx: Dental Abscess, Dental Caries, Fractured Tooth Provider Diagnosis: Pain, dental Discharge ED - Sign-Out/Discharge Documenting (check all that apply): Patient Departure All imaging exams completed and their final reports reviewed: No Studies - Discharge Plan Condition: Stable Disposition: HOME Prescriptions: Lidocaine 2% VISCOUS* [Xylocaine 2% Viscous*] 15 ml SWISH SPIT Q4H PRN #1 btl PRN Reason: Pain - Mild traMADol TAB* [Ultram*] 50 mg PO Q12H PRN #8 tab MDD 2 PRN Reason: Pain - Moderate Patient Education Materials: Toothache (ED) Referrals: Mray Joseph MD [Primary Care Provider] - If Needed Additional Instructions: Please follow up with a dental care provider as soon as possible. - Billing Disposition and Condition Condition: STABLE Disposition: Home
== END 2019-04-12 22:04 | disposition home or self-care (01) ==
LOC: UCCORT 21:32
DX: K08.89 Other specified disorders of teeth and supporting structures (principal)
CPT/HCPCS: 99212; G0463

== ENCOUNTER 2019-05-29 17:51 | Emergency (ER) | payer OTHER ==
--- OUTSIDE RECORDS SUMMARY | 2019-05-29 17:58 | XMS REPORT | Continuity of Care Document ---
:1985 External Reference #:[id number] Author Name Ermelinda Gordon NP (transmitted by agent of provider Guillermina Hardy) Address [address] [facility], [address] [place] [address] Care Team Providers Name Role Phone Mary Joseph MD - Internal Medicine Care Team Information Payment Poster [phone] Problems Description No Information Available Social History Type Date Description Comments Sex Unknown ETOH Use Rarely consumes alcohol Tobacco Use Start: Unknown Patient has never smoked Recreational Drug Use Never Used Drugs Smoking Status Reviewed: 05/11/19 Patient has never smoked Exercise Type/Frequency Walks daily Allergies, Adverse Reactions, Alerts Description No Known Drug Allergies Medications Active Medications SIG Qnty Indications Ordering Date Provider Hydrochlorothiazide take 1 tablet Unknown 25mg Tablets by mouth once daily Amlodipine Besylate take 1 tablet Unknown 10mg Tablets by mouth once daily Lisinopril Mary Joseph 20mg Tablets Megestrol Acetate 2 tabs by 240ml Unknown 40mg/ml mouth twice a Suspension day Metformin HCL Kashif Ly 500mg Tablets MD Arlene Vitamin B-12 ER 1 by mouth Unknown 1000mcg Tablets ER every day [id number] 1 by mouth Unknown 1mg Chewtabs every day Immunizations Description No Information Available Vital Signs Date Vital Result Comment 05/11/2019 2:45pm Height 61 inches 5'1" Weight 442.00 lb Heart Rate 93 /min BP Systolic Sitting 118 mmHg BP Diastolic Sitting 88 mmHg O2 % BldC Oximetry 95 % BMI (Body Mass Index) 83.5 kg/m2 02/22/2019 2:49pm Height 61 inches 5'1" Weight 446.00 lb Heart Rate 90 /min BP Systolic Sitting 114 mmHg Lue regu cuff (forearm) BP Diastolic Sitting 72 mmHg Lue regu cuff (forearm) Respiratory Rate 24 /min O2 % BldC Oximetry 92 % BMI (Body Mass Index) 84.3 kg/m2 Results Description No Information Available Procedures Date Code Description Status 04/10/2019 31980 Diffusing Capacity Completed 04/10/2019 19560 Plethysmography Determination Lung Volumes & Per Airway Completed Resist 04/10/2019 50458 Pulmonary Function><Bronchodil Completed 01/05/2019 81075 Polysomnography Sleep Staging 4+ Parameters Completed Medical Devices Description No Information Available Encounters Type Date Location Provider Dx Diagnosis Office Visit 05/11/2019 [facility] G47.33 Obstructive sleep 3:00p [facility] apnea (adult) [facility] (pediatric) E66.2 Morbid (severe) obesity with alveolar hypoventilation R53.83 Other fatigue Office Visit 03/13/2019 3:20p [facility] Shashi Allred, D50.9 Iron deficiency [facility] AT M.D. anemia, [place] unspecified E66.9 Obesity, unspecified N85.8 Other specified noninflammatory disorders of uterus Office Visit 02/27/2019 9:00a [facility] Shashi Allred D50.9 Iron deficiency [facility] AT .D. anemia, [place] unspecified N92.1 Excessive and frequent menstruation with irregular cycle R19.7 Diarrhea, unspecified E66.9 Obesity, unspecified Office Visit 02/22/2019 [facility] G47.33 Obstructive sleep 3:00p [facility] apnea (adult) [facility] (pediatric) R53.83 Other fatigue E66.01 Morbid (severe) obesity due to excess calories Z68.45 Body mass index (BMI) 70 or greater, adult Assessments Date Code Description Provider 05/11/2019 G47.33 Obstructive sleep apnea (adult) (pediatric) Ermelinda Gordon NP 05/11/2019 E66.2 Morbid (severe) obesity with alveolar Ermelinda Gordon NP hypoventilation 05/11/2019 R53.83 Other fatigue Ermelinda Gordon NP 04/10/2019 E66.2 Morbid (severe) obesity with alveolar Hellen Quinteros MD hypoventilation 03/13/2019 D50.9 Iron deficiency anemia, unspecified Shashi Allred M.D. 03/13/2019 E66.9 Obesity, unspecified Shashi Allred M.D. 03/13/2019 N85.8 Other specified noninflammatory disorders of Shashi Allred M.D. uterus 02/27/2019 D50.9 Iron deficiency anemia, unspecified Shashi Allred M.D. 02/27/2019 N92.1 Excessive and frequent menstruation with Shashi Allred M.D. irregular cycle 02/27/2019 R19.7 Diarrhea, unspecified Shashi Allred M.D. 02/27/2019 E66.9 Obesity, unspecified Shashi Allred M.D. 02/22/2019 G47.33 Obstructive sleep apnea (adult) (pediatric) Ermelinda Gordon NP 02/22/2019 R53.83 Other fatigue Ermelinda Gordon NP 02/22/2019 E66.01 Morbid (severe) obesity due to excess Ermelinda Gordon NP calories 02/22/2019 Z68.45 Body mass index (BMI) 70 or greater, adult Ermelinda Gordon NP 01/05/2019 G47.33 Obstructive sleep apnea (adult) (pediatric) Hellen Quinteros MD Plan of Treatment Future Appointment(s):07/11/2019 3:00 pm - Ermelinda Gordon NP at [facility]05/11/2019 - Ermelinda Gordon NPG47.33 Obstructive sleep apnea (adult) (pediatric)New Orders:Sleep Study, Ordered: 02/19Follow up:2 monthsRecommendations:It is very, very important that you use your CPAP nightly given the extent of your sleep apnea. Please call me if you are having any difficulty and we can work together to solve your issues. I am goingto order an in-lab titration study for a new kind of machine that might be more comfortable for you to use. They will call you from the sleep lab to schedule this study. If you have any further questions, please call the [facility] at [phone] If you have any sleepiness while driving you MUST avoid operating a vehicle or machinery. If you feel tired while driving, assembler for puller over hand and take a nap or switch drivers. If you know you are sleepy and need to go somewhere, arrange for a ride oruse public transportation. It is very important to not risk your safety or the safety of others.E66.2 Morbid (severe) obesity with alveolar [id number] Other fatigue Functional Status Description No Information Available Mental Status Description No Information Available Referrals Description No Information Available
--- NOTE | 2019-05-29 18:38 | UC ---
Dental HPI - HPI Summary HPI Summary: The patient is a 34-year-old female with the onset of right upper dental pain that radiates up towards her right eye that started yesterday. She has not been febrile. She denies any facial swelling. She has had no chest pain or shortness of breath. She denies having a heart murmur. 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 [facility] - Surgical History Surgical History: Yes Surgery Procedure, Year, and Place: T&A, 2010, [facility] - Family History Known Family History: Positive: Cardiac Disease, Hypertension, Diabetes, Other - brain CA - Social History Alcohol Use: None Alcohol Amount: 1 DRINK YEARLY Substance Use Type: None Smoking Status (MU): Never Smoked Tobacco Have You Smoked in the Last Year: No - Immunization History Most Recent Influenza Vaccination: Not the Season Review of Systems All Other Systems Reviewed And Are Negative: Yes Constitutional: Positive: Negative Skin: Positive: Negative Eyes: Positive: Negative ENT: Positive: Dental Pain Respiratory: Positive: Negative Cardiovascular: Positive: Negative Gastrointestinal: Positive: Negative Genitourinary: Positive: Negative Motor: Positive: Negative Neurovascular: Positive: Negative Musculoskeletal: Positive: Negative Neurological: Positive: Negative Psychological: Positive: Negative Physical Exam Triage Information Reviewed: Yes Appearance: Well-Appearing, No Pain Distress, Well-Nourished Vital Signs: Initial Vital Signs Temp 98.4 F 05/29/19 18:01 Pulse 80 05/29/19 18:01 Resp 20 05/29/19 18:01 Pulse Ox 97 05/29/19 18:01 Vital Signs Reviewed: Yes Eyes: Positive: Conjunctiva Clear ENT: Positive: Hearing grossly normal. Negative: Nasal congestion, Nasal drainage, Trismus, Muffled voice, Hoarse voice Dental Exam: Other - abysmal dentition/tooth in question rotted to gum line Neck: Positive: Supple, Nontender, No Lymphadenopathy Respiratory: Positive: Lungs clear, Normal breath sounds, No respiratory distress, No accessory muscle use Cardiovascular: Positive: RRR, No Murmur Musculoskeletal: Positive: ROM Intact, No Edema Neurological: Positive: Alert Psychological Exam: Normal Skin Exam: Normal Dental Complaint Course/Dx - Differential Dx/Diagnosis Provider Diagnosis: Dentalgia Discharge ED - Sign-Out/Discharge Documenting (check all that apply): Patient Departure All imaging exams completed and their final reports reviewed: No Studies - Discharge Plan Condition: Stable Disposition: HOME Prescriptions: Naproxen [Naproxen 500 mg tab] 500 mg PO BID PRN #20 tablet PRN Reason: Pain Penicillin VK 500 MG TAB(NF) [Penicillin VK 500 mg Tab] 500 mg PO QID #28 tab Patient Education Materials: Toothache (ED) Referrals: Mary Joseph MD [Primary Care Provider] - If Needed Additional Instructions: continue to attempt to make arrangements to see a dentist recheck for new or worsening symptoms or if not improved in 3-4 days - Billing Disposition and Condition Condition: STABLE Disposition: Home
== END 2019-05-29 19:00 | disposition home or self-care (01) ==
LOC: UCEAST 17:51
DX: K08.89 Other specified disorders of teeth and supporting structures (principal); I10 Essential (primary) hypertension
CPT/HCPCS: 99212; G0463

== ENCOUNTER 2020-06-28 17:15 | Inpatient (IN) ==
[2020-06-28] MEDS ORDERED: methylPREDNISolone 125 mg 2 ML VIAL IV ONE (17:51)
[2020-06-28] MEDS ORDERED: Magnesium Sulfate 2 gm BAG 2 GM/50 ML BAG IVPB ONE (17:52)
[2020-06-28] MEDS ORDERED: NS 0.9% 1000 ml BAG 1,000 ML IV ONE (17:52)
[2020-06-28] MEDS ORDERED: Albuterol HFA INHALER 8 gm MDI INH ONE (17:52)
[2020-06-28 18:10] LABS: ABS Lymphocytes 0.9 10^3/ul (1.0-4.8); ABS Monocytes 0.5 10^3/ul (0-0.8); ABS Neutrophils 4.7 10^3/ul (1.5-7.7); Hematocrit 37 % (35-47); Hemoglobin 11.9 g/dL (12.0-16.0); Lymphocyte % 14.7 %; Mean Corpuscular HGB Conc 32 g/dL (31-36); Mean Corpuscular Hemoglobin 24 pg (27-31); Mean Corpuscular Volume 74 fL (80-97); Mean Platelet Volume 8.5 fL (7.4-10.4); Platelet Count 200 10^3/uL (150-450); Red Blood Count 5.03 10^6 /uL (3.70-4.87); Red Cell Distribution Width 20 % (10-15)
[2020-06-28 18:15] LABS: Activated Partial Thrombo Time 32.5 seconds (26.0-38.0); INR 1.38 (0.82-1.09)
[2020-06-28 18:20] LABS: ALT 12 U/L (7-52); AST 37 U/L (13-39); Alkaline Phosphatase 37 U/L (34-104); Anion Gap 11 mmol/L (2-11); BUN/Creatinine Ratio 13.3 (8-20); Blood Urea Nitrogen 18 mg/dL (6-24); C Reactive Protein 233.81 mg/L (<8.01); CO2 Carbon Dioxide 25 mmol/L (22-32); Calcium 8.8 mg/dL (8.6-10.3); Chloride 99 mmol/L (101-111); EGFR African American 54.3 (>60); EGFR Non-African American 44.9 (>60); Glucose 96 mg/dL (70-100); Magnesium 2.2 mg/dL (1.9-2.7); Potassium 4.1 mmol/L (3.5-5.0); Sodium 135 mmol/L (135-145)
[2020-06-28 18:27] LABS: Troponin I 0.03 ng/mL (<0.03)
[2020-06-28 18:44] LABS: LDH 521 U/L (140-271)
[2020-06-28] MEDS ORDERED: Iodixanol (CONTRAST) 320 MG/ML 100 ML SDV IV ONE (19:51)
[2020-06-28 21:35] LABS: Troponin I 0.05 ng/mL (<0.03)
[2020-06-28] MEDS ORDERED: Remdesivir 5 MG/ML LIQ IV Vial 200 MG in NS 0.9% 250 ml 210 ML IV ONE (22:04)
[2020-06-28] MEDS ORDERED: Ondansetron 4 mg VIAL 2 MG/ML 2 ml VIAL IV PRN (22:06)
[2020-06-29 01:53] LABS: ALT 11 U/L (7-52); AST 36 U/L (13-39); Albumin 3.3 g/dL (3.2-5.2); Alkaline Phosphatase 32 U/L (34-104); Anion Gap 10 mmol/L (2-11); BUN/Creatinine Ratio 17.8 (8-20); Blood Urea Nitrogen 19 mg/dL (6-24); CO2 Carbon Dioxide 23 mmol/L (22-32); Calcium 7.9 mg/dL (8.6-10.3); Chloride 104 mmol/L (101-111); EGFR Non-African American 58.7 (>60); Globulin 3.4 g/dL (2-4); Glucose 132 mg/dL (70-100); Magnesium 2.6 mg/dL (1.9-2.7); Potassium 4.1 mmol/L (3.5-5.0); Sodium 137 mmol/L (135-145); Total Protein 6.7 g/dL (6.4-8.9)
[2020-06-29 02:37] LABS: Troponin I 0.03 ng/mL (<0.03)
[2020-06-29] MEDS: Enoxaparin 100 MG/ML SYR SUBCUT SCH ×2 (03:38→17:28)
[2020-06-29 03:56] LABS: ABS Lymphocytes 0.6 10^3/ul (1.0-4.8); ABS Monocytes 0.2 10^3/ul (0-0.8); ABS Neutrophils 3.2 10^3/ul (1.5-7.7); Hematocrit 34 % (35-47); Hemoglobin 10.9 g/dL (12.0-16.0); Mean Corpuscular HGB Conc 32 g/dL (31-36); Mean Corpuscular Hemoglobin 24 pg (27-31); Mean Corpuscular Volume 74 fL (80-97); Mean Platelet Volume 8.2 fL (7.4-10.4); Platelet Count 164 10^3/uL (150-450); Red Blood Count 4.59 10^6 /uL (3.70-4.87); Red Cell Distribution Width 20 % (10-15); White Blood Count 3.9 10^3/uL (3.5-10.8)
[2020-06-29] MEDS ORDERED: Dexamethasone IV 4 MG/ML VIAL 1 ml VIAL IV SLOW PU SCH (09:00)
[2020-06-29] MEDS ORDERED: Rocuronium 50 mg VIAL 10 mg/ml 5 ml VIAL (50 mg) ONE ×3 (09:52→11:10)
[2020-06-29] MEDS ORDERED: Succinylcholine 200 mg VIAL 20 mg/ml 10 ml VIAL (200 mg) ONE (09:52)
[2020-06-29] MEDS ORDERED: Etomidate 40 mg/20 ml (2 MG/ML) 20 ml VIAL (40 mg) ONE ×2 (09:56→10:11)
[2020-06-29] MEDS ORDERED: Midazolam 10 mg/10 ml VIAL 1 mg/ml 10 ml VIAL (10 mg) ONE ×2 (09:57→10:11)
[2020-06-29] MEDS ORDERED: fentaNYL 250 mcg/5 ml 50 MCG/ML 5 ml VIAL (250 MCG) ONE (10:11)
[2020-06-29] MEDS: Cisatracurium 100 MG in NS 0.9% 250 ml 200 ML IV SCH ×4 (12:30→23:43)
[2020-06-29 16:01] LABS: Hematocrit 36 % (35-47); Hemoglobin 11.4 g/dL (12.0-16.0); Mean Corpuscular HGB Conc 31 g/dL (31-36); Mean Corpuscular Hemoglobin 24 pg (27-31); Mean Corpuscular Volume 75 fL (80-97); Platelet Count 168 10^3/uL (150-450); Red Blood Count 4.86 10^6 /uL (3.70-4.87); Red Cell Distribution Width 19 % (10-15); White Blood Count 3.7 10^3/uL (3.5-10.8)
[2020-06-29 16:24] LABS: BUN/Creatinine Ratio 22.5 (8-20); Calcium 7.9 mg/dL (8.6-10.3); EGFR Non-African American 94.2 (>60); Magnesium 2.2 mg/dL (1.9-2.7); Phosphorus 3.3 mg/dL (2.5-5.0); Potassium 3.6 mmol/L (3.5-5.0)
[2020-06-29 16:26] LABS: ABS Lymphocytes 0.4 10^3/ul (1.0-4.8); ABS Monocytes 0.2 10^3/ul (0-0.8); ABS Neutrophils 3.1 10^3/ul (1.5-7.7); Lymphocyte % 10.7 %; Nucleated Red Blood Cells % 0.1
[2020-06-29] MEDS: cefTRIAXone 2 GM ADDV.VIAL 2 GM in NS 0.9% 100 ml BAG 100 ML IV SCH (17:08)
[2020-06-29] MEDS: Azithromycin 500 mg/250 ml NS 500 MG/250 ML BAG IVPB SCH (17:08)
[2020-06-29] MEDS: methylPREDNISolone SOD 40 mg/ml 1 ml VIAL IV SCH (17:28)
[2020-06-29] MEDS ORDERED: LORazepam 2 mg VIAL 1 ml IV PUSH PRN (20:02)
[2020-06-29] MEDS ORDERED: Lorazepam PYXIS KEY PRN (20:02)
[2020-06-29] MEDS ORDERED: Lorazepam PYXIS KEY ONE (20:06)
[2020-06-29] MEDS ORDERED: LORazepam 2 mg VIAL 1 ml ONE (20:07)
[2020-06-29] MEDS: fentaNYL INFUSION 50 MCG/ML 2,500 MCG/50 ML BAG IV SCH (21:29)
[2020-06-30] MEDS: Remdesivir 5 MG/ML LIQ IV Vial 100 MG in NS 0.9% 250 ml 230 ML IV SCH (01:53)
[2020-06-30] MEDS: methylPREDNISolone SOD 40 mg/ml 1 ml VIAL IV SCH ×3 (02:31→16:30)
[2020-06-30] MEDS: Enoxaparin 100 MG/ML SYR SUBCUT SCH ×2 (02:31→16:30)
[2020-06-30] MEDS: Cisatracurium 100 MG in NS 0.9% 250 ml 200 ML IV SCH ×5 (03:19→18:42)
[2020-06-30 05:31] LABS: Hematocrit 33 % (35-47); Hemoglobin 10.3 g/dL (12.0-16.0); Mean Corpuscular HGB Conc 32 g/dL (31-36); Mean Corpuscular Hemoglobin 24 pg (27-31); Mean Corpuscular Volume 75 fL (80-97); Mean Platelet Volume 8.6 fL (7.4-10.4); Platelet Count 174 10^3/uL (150-450); Red Blood Count 4.36 10^6 /uL (3.70-4.87); Red Cell Distribution Width 20 % (10-15); White Blood Count 6.6 10^3/uL (3.5-10.8)
[2020-06-30 05:55] LABS: Albumin 3.1 g/dL (3.2-5.2); BUN/Creatinine Ratio 20.7 (8-20); EGFR African American 90.2 (>60); EGFR Non-African American 74.5 (>60); Magnesium 2.2 mg/dL (1.9-2.7); Phosphorus 3.4 mg/dL (2.5-5.0); Potassium 4.2 mmol/L (3.5-5.0); Total Bilirubin 0.6 mg/dL (0.2-1.0); Total Protein 6.1 g/dL (6.4-8.9)
[2020-06-30] MEDS: Midazolam 50 MG VIAL IV DRIP 50 ML IV SCH ×5 (06:54→23:01)
[2020-06-30 06:59] LABS: ABS Lymphocytes 0.1 10^3/ul (1.0-4.8); ABS Monocytes 0.3 10^3/ul (0-0.8); ABS Neutrophils 6.1 10^3/ul (1.5-7.7); Lymphocyte % 1.7 %; Nucleated Red Blood Cells % 0.1
[2020-06-30] MEDS: Pantoprazole VIAL 40 MG VIAL IV SCH (09:06)
[2020-06-30] MEDS: Chlorhexidine MOUTHWASH 0.12% 15 ML UDC TOPICAL SCH ×5 (09:36→22:42)
[2020-06-30] MEDS: fentaNYL INFUSION 50 MCG/ML 2,500 MCG/50 ML BAG IV SCH ×2 (10:15→19:26)
[2020-06-30 13:59] LABS: Urine Appearance Cloudy; Urine Bilirubin Negative (Negative); Urine Blood Negative (Negative); Urine Color Yellow; Urine Glucose Negative (Negative); Urine Ketones Negative (Negative); Urine Nitrite Negative (Negative); Urine Protein 1+(30 mg/dL) (Negative); Urine Urobilinogen Negative (Negative)
[2020-06-30 14:05] LABS: Urine Bacteria Absent (Absent); Urine Red Blood Cell Trace(0-2/hpf) (Absent); Urine Squamous Epithelial Cell Present (Absent); Urine White Blood Cell Trace(0-5/hpf) (Absent)
[2020-06-30] MEDS: cefTRIAXone 2 GM ADDV.VIAL 2 GM in NS 0.9% 100 ml BAG 100 ML IV SCH (17:04)
[2020-06-30] MEDS: Azithromycin 500 mg/250 ml NS 500 MG/250 ML BAG IVPB SCH (18:22)
[2020-07-01] MEDS: methylPREDNISolone SOD 40 mg/ml 1 ml VIAL IV SCH ×3 (01:16→15:51)
[2020-07-01] MEDS: Chlorhexidine MOUTHWASH 0.12% 15 ML UDC TOPICAL SCH ×6 (01:16→21:15)
[2020-07-01] MEDS: Remdesivir 5 MG/ML LIQ IV Vial 100 MG in NS 0.9% 250 ml 230 ML IV SCH (02:00)
[2020-07-01] MEDS: Cisatracurium 100 MG in NS 0.9% 250 ml 200 ML IV SCH ×3 (02:02→19:25)
[2020-07-01] MEDS: Midazolam 50 MG VIAL IV DRIP 50 ML IV SCH ×4 (04:07→20:33)
[2020-07-01] MEDS: Enoxaparin 100 MG/ML SYR SUBCUT SCH ×2 (04:12→15:51)
[2020-07-01 05:02] LABS: Albumin 2.9 g/dL (3.2-5.2); Albumin/Globulin Ratio 0.9 (1-3); BUN/Creatinine Ratio 28.3 (8-20); EGFR African American 62.2 (>60); EGFR Non-African American 51.4 (>60); Globulin 3.4 g/dL (2-4); Potassium 4.6 mmol/L (3.5-5.0); Total Bilirubin 0.5 mg/dL (0.2-1.0); Total Protein 6.3 g/dL (6.4-8.9)
[2020-07-01] MEDS: Pantoprazole VIAL 40 MG VIAL IV SCH (05:48)
[2020-07-01] MEDS: Artificial Tear OPHTH.OINT 3.5 GM BOTH EYES PRN ×2 (05:48→15:57)
[2020-07-01] MEDS: fentaNYL INFUSION 50 MCG/ML 2,500 MCG/50 ML BAG IV SCH ×2 (08:25→20:33)
[2020-07-01] MEDS ORDERED: Furosemide 40 mg/4 ml IV VIAL IV ONE (12:11)
[2020-07-01] MEDS ORDERED: Furosemide 40 mg/4 ml IV VIAL ONE (12:18)
[2020-07-01] MEDS: Nystatin TOP POWDER 15 GM BTL TOPICAL SCH ×3 (12:20→20:08)
[2020-07-01] MEDS: cefTRIAXone 2 GM ADDV.VIAL 2 GM in NS 0.9% 100 ml BAG 100 ML IV SCH (15:41)
[2020-07-01] MEDS: Azithromycin 500 mg/250 ml NS 500 MG/250 ML BAG IVPB SCH (16:32)
[2020-07-01] MEDS ORDERED: Furosemide 40 mg/4 ml IV VIAL IV SLOW PU ONE (16:52)
[2020-07-01] MEDS ORDERED: Magnesium Sulfate 2 gm BAG 2 GM/50 ML BAG IVPB ONE (16:52)
[2020-07-01] MEDS ORDERED: Atropine 1 MG/ML INJ 1 ML VIAL IV PUSH PRN (20:52)
[2020-07-02] MEDS: Cisatracurium 100 MG in NS 0.9% 250 ml 200 ML IV SCH ×3 (00:11→10:16)
[2020-07-02] MEDS: Remdesivir 5 MG/ML LIQ IV Vial 100 MG in NS 0.9% 250 ml 230 ML IV SCH (00:52)
[2020-07-02] MEDS: methylPREDNISolone SOD 40 mg/ml 1 ml VIAL IV SCH ×3 (00:57→15:44)
[2020-07-02] MEDS: Artificial Tear OPHTH.OINT 3.5 GM BOTH EYES PRN (01:01)
[2020-07-02] MEDS: Chlorhexidine MOUTHWASH 0.12% 15 ML UDC TOPICAL SCH ×6 (01:03→20:44)
[2020-07-02] MEDS: Midazolam 50 MG VIAL IV DRIP 50 ML IV SCH ×5 (01:45→23:00)
[2020-07-02] MEDS: Enoxaparin 100 MG/ML SYR SUBCUT SCH ×2 (03:04→15:45)
[2020-07-02 05:01] LABS: ABS Lymphocytes 0.3 10^3/ul (1.0-4.8); ABS Monocytes 0.3 10^3/ul (0-0.8); ABS Neutrophils 6.1 10^3/ul (1.5-7.7); Hematocrit 30 % (35-47); Hemoglobin 9.4 g/dL (12.0-16.0); Lymphocyte % 4.1 %; Mean Corpuscular HGB Conc 31 g/dL (31-36); Mean Corpuscular Hemoglobin 23 pg (27-31); Mean Corpuscular Volume 74 fL (80-97); Mean Platelet Volume 8.7 fL (7.4-10.4); Nucleated Red Blood Cells % 0.2; Platelet Count 239 10^3/uL (150-450); Red Blood Count 4.01 10^6 /uL (3.70-4.87); Red Cell Distribution Width 20 % (10-15); White Blood Count 6.7 10^3/uL (3.5-10.8)
[2020-07-02 05:30] LABS: Albumin 2.8 g/dL (3.2-5.2); Albumin/Globulin Ratio 0.9 (1-3); BUN/Creatinine Ratio 38.5 (8-20); Calcium 8.2 mg/dL (8.6-10.3); EGFR African American 80.5 (>60); EGFR Non-African American 66.5 (>60); Globulin 3.2 g/dL (2-4); Total Bilirubin 0.3 mg/dL (0.2-1.0)
[2020-07-02] MEDS: Pantoprazole VIAL 40 MG VIAL IV SCH (06:03)
[2020-07-02] MEDS: Nystatin TOP POWDER 15 GM BTL TOPICAL SCH ×3 (07:43→19:37)
[2020-07-02] MEDS: fentaNYL INFUSION 50 MCG/ML 2,500 MCG/50 ML BAG IV SCH (09:57)
[2020-07-02] MEDS: cefTRIAXone 2 GM ADDV.VIAL 2 GM in NS 0.9% 100 ml BAG 100 ML IV SCH (16:29)
[2020-07-02] MEDS: Azithromycin 500 mg/250 ml NS 500 MG/250 ML BAG IVPB SCH (16:44)
[2020-07-02] MEDS ORDERED: Remdesivir 100 mg Q24H MAINTENANCE DOSING (LIQ Vial) IV SCH (21:00)
[2020-07-03] MEDS: Propofol 10 mg/ml 100 ML BTL 100 ML ONE ×2 (01:00→02:29)
[2020-07-03] MEDS: Chlorhexidine MOUTHWASH 0.12% 15 ML UDC TOPICAL SCH ×6 (01:02→20:24)
[2020-07-03] MEDS: methylPREDNISolone SOD 40 mg/ml 1 ml VIAL IV SCH ×3 (01:03→16:08)
[2020-07-03] MEDS: Enoxaparin 100 MG/ML SYR SUBCUT SCH ×2 (04:19→15:22)
[2020-07-03] MEDS: Pantoprazole VIAL 40 MG VIAL IV SCH (04:31)
[2020-07-03 04:55] LABS: Albumin 2.9 g/dL (3.2-5.2); Albumin/Globulin Ratio 0.9 (1-3); BUN/Creatinine Ratio 41.4 (8-20); Calcium 8.2 mg/dL (8.6-10.3); EGFR African American 90.2 (>60); EGFR Non-African American 74.5 (>60); Globulin 3.2 g/dL (2-4); Potassium 4.3 mmol/L (3.5-5.0); Total Bilirubin 0.3 mg/dL (0.2-1.0); Total Protein 6.1 g/dL (6.4-8.9)
[2020-07-03] MEDS: Nystatin TOP POWDER 15 GM BTL TOPICAL SCH ×3 (09:21→20:24)
[2020-07-03] MEDS: Midazolam 50 MG VIAL IV DRIP 50 ML IV SCH ×4 (11:10→23:04)
[2020-07-03] MEDS: Propofol 10 mg/ml 100 ML BTL 100 ML IV SCH ×2 (11:13→23:04)
[2020-07-03] MEDS: fentaNYL INFUSION 50 MCG/ML 2,500 MCG/50 ML BAG IV SCH (12:08)
[2020-07-03] MEDS: Polyethylene Glycol 3350 17 GM PACKET PO SCH (13:59)
[2020-07-03] MEDS: cefTRIAXone 2 GM ADDV.VIAL 2 GM in NS 0.9% 100 ml BAG 100 ML IV SCH (16:07)
[2020-07-03] MEDS: Azithromycin 500 mg/250 ml NS 500 MG/250 ML BAG IVPB SCH (16:34)
[2020-07-03] MEDS: Docusate LIQ 100 MG/10 ML UDC PO SCH (20:24)
[2020-07-04] MEDS: Chlorhexidine MOUTHWASH 0.12% 15 ML UDC TOPICAL SCH ×6 (00:27→22:18)
[2020-07-04] MEDS: methylPREDNISolone SOD 40 mg/ml 1 ml VIAL IV SCH ×3 (00:27→16:40)
[2020-07-04] MEDS: Midazolam 50 MG VIAL IV DRIP 50 ML IV SCH ×6 (01:15→22:33)
[2020-07-04] MEDS: Enoxaparin 100 MG/ML SYR SUBCUT SCH ×2 (04:41→16:40)
[2020-07-04] MEDS: Pantoprazole VIAL 40 MG VIAL IV SCH (04:41)
[2020-07-04 05:05] LABS: Hematocrit 31 % (35-47); Hemoglobin 9.8 g/dL (12.0-16.0); Mean Corpuscular HGB Conc 31 g/dL (31-36); Mean Corpuscular Hemoglobin 24 pg (27-31); Mean Corpuscular Volume 76 fL (80-97); Mean Platelet Volume 9.1 fL (7.4-10.4); Platelet Count 292 10^3/uL (150-450); Red Blood Count 4.14 10^6 /uL (3.70-4.87); Red Cell Distribution Width 20 % (10-15); White Blood Count 8.5 10^3/uL (3.5-10.8)
[2020-07-04] MEDS: fentaNYL INFUSION 50 MCG/ML 2,500 MCG/50 ML BAG IV SCH ×2 (07:02→17:05)
[2020-07-04 07:26] LABS: ABS Lymphocytes 0.5 10^3/ul (1.0-4.8); ABS Monocytes 0.5 10^3/ul (0-0.8); ABS Neutrophils 7.6 10^3/ul (1.5-7.7); Lymphocyte % 5.3 %; Nucleated Red Blood Cells % 0.2
[2020-07-04 07:31] LABS: Polychromasia 1+
[2020-07-04] MEDS: Docusate LIQ 100 MG/10 ML UDC PO SCH ×2 (08:36→19:54)
[2020-07-04] MEDS: Polyethylene Glycol 3350 17 GM PACKET PO SCH (08:37)
[2020-07-04] MEDS: Nystatin TOP POWDER 15 GM BTL TOPICAL SCH ×3 (09:00→19:54)
[2020-07-04 10:35] LABS: BUN/Creatinine Ratio 48.7 (8-20); Calcium 8.2 mg/dL (8.6-10.3); EGFR African American 105.4 (>60); EGFR Non-African American 87.1 (>60)
[2020-07-04] MEDS: Propofol 10 mg/ml 100 ML BTL 100 ML IV SCH (10:45)
[2020-07-04 10:52] LABS: Potassium 5.2 mmol/L (3.5-5.0)
[2020-07-04] MEDS: Saline FLUSH-CENTRAL 10 ML SYRINGE CENT\\PICC SCH ×2 (11:43→22:18)
[2020-07-04] MEDS ORDERED: Albuterol/Ipratropium NEB.SOL (2.5/0.5 MG) 3 ML NEB.SOLN INH SCH (12:00)
[2020-07-04] MEDS: Albuterol/Ipratropium NEB.SOL (2.5/0.5 MG) 3 ML NEB.SOLN INH SCH ×2 (15:42→18:50)
[2020-07-04] MEDS ORDERED: Albuterol/Ipratropium NEB.SOL (2.5/0.5 MG) 3 ML NEB.SOLN ONE (15:51)
[2020-07-04] MEDS: cefTRIAXone 2 GM ADDV.VIAL 2 GM in NS 0.9% 100 ml BAG 100 ML IV SCH (16:05)
[2020-07-04] MEDS: Azithromycin 500 mg/250 ml NS 500 MG/250 ML BAG IVPB SCH (16:36)
[2020-07-04] MEDS: Cisatracurium 100 MG in NS 0.9% 250 ML BAG 200 ML IV SCH (23:43)
[2020-07-05] MEDS: methylPREDNISolone SOD 40 mg/ml 1 ml VIAL IV SCH ×3 (00:19→19:53)
[2020-07-05] MEDS: Propofol 10 mg/ml 100 ML BTL 100 ML IV SCH ×3 (00:28→19:36)
[2020-07-05] MEDS: Albuterol/Ipratropium NEB.SOL (2.5/0.5 MG) 3 ML NEB.SOLN INH SCH ×4 (00:46→21:20)
[2020-07-05] MEDS: Chlorhexidine MOUTHWASH 0.12% 15 ML UDC TOPICAL SCH ×6 (02:10→23:03)
[2020-07-05] MEDS: Artificial Tear OPHTH.OINT 3.5 GM BOTH EYES PRN (02:12)
[2020-07-05] MEDS: Midazolam 50 MG VIAL IV DRIP 50 ML IV SCH ×5 (02:23→17:04)
[2020-07-05] MEDS: fentaNYL INFUSION 50 MCG/ML 2,500 MCG/50 ML BAG IV SCH ×3 (02:57→22:17)
[2020-07-05] MEDS: Cisatracurium 100 MG in NS 0.9% 250 ML BAG 200 ML IV SCH ×4 (03:23→16:03)
[2020-07-05] MEDS: Enoxaparin 100 MG/ML SYR SUBCUT SCH ×2 (05:19→14:38)
[2020-07-05] MEDS: Pantoprazole VIAL 40 MG VIAL IV SCH (05:19)
[2020-07-05 05:44] LABS: Calcium 8.3 mg/dL (8.6-10.3); EGFR African American 112.2 (>60); EGFR Non-African American 92.7 (>60); Magnesium 2.8 mg/dL (1.9-2.7); Phosphorus 3.8 mg/dL (2.5-5.0); Potassium 5.6 mmol/L (3.5-5.0)
[2020-07-05 05:49] LABS: Hematocrit 31 % (35-47); Hemoglobin 9.5 g/dL (12.0-16.0); Mean Corpuscular HGB Conc 31 g/dL (31-36); Mean Corpuscular Hemoglobin 24 pg (27-31); Mean Corpuscular Volume 77 fL (80-97); Mean Platelet Volume 9.2 fL (7.4-10.4); Platelet Count 279 10^3/uL (150-450); Red Blood Count 4.02 10^6 /uL (3.70-4.87); Red Cell Distribution Width 20 % (10-15); White Blood Count 8.4 10^3/uL (3.5-10.8)
[2020-07-05 07:13] LABS: ABS Lymphocytes 0.5 10^3/ul (1.0-4.8); ABS Monocytes 0.4 10^3/ul (0-0.8); ABS Neutrophils 7.5 10^3/ul (1.5-7.7); Lymphocyte % 6.3 %; Nucleated Red Blood Cells % 0.2
[2020-07-05] MEDS ORDERED: Dextrose 50% Syringe 50 ml 25 GM/50 ML SYRINGE IV PUSH PRN (07:42)
[2020-07-05] MEDS: Docusate LIQ 100 MG/10 ML UDC PO SCH ×2 (08:34→19:52)
[2020-07-05] MEDS: Polyethylene Glycol 3350 17 GM PACKET PO SCH (08:35)
[2020-07-05] MEDS: Nystatin TOP POWDER 15 GM BTL TOPICAL SCH ×3 (08:43→19:53)
[2020-07-05] MEDS: Saline FLUSH-CENTRAL 10 ML SYRINGE CENT\\PICC SCH ×2 (09:37→23:03)
[2020-07-05] MEDS ORDERED: Acetylcysteine INHALATION SOL 200 MG/ML NEB.SOLN 10 ML INH ONE (10:16)
[2020-07-05] MEDS: Patiromer POWDER 8.4 GM PAK PO SCH (13:19)
[2020-07-05 15:08] LABS: BUN/Creatinine Ratio 47.4 (8-20); Calcium 8.1 mg/dL (8.6-10.3); EGFR African American 105.4 (>60); EGFR Non-African American 87.1 (>60)
[2020-07-05 15:22] LABS: Potassium 5.4 mmol/L (3.5-5.0)
[2020-07-05] MEDS: cefTRIAXone 2 GM ADDV.VIAL 2 GM in NS 0.9% 100 ml BAG 100 ML IV SCH (16:03)
[2020-07-05 20:21] LABS: BUN/Creatinine Ratio 46.8 (8-20); Calcium 8.2 mg/dL (8.6-10.3); EGFR African American 100.8 (>60); EGFR Non-African American 83.3 (>60); Globulin 3.1 g/dL (2-4); Total Bilirubin 0.4 mg/dL (0.2-1.0); Total Protein 6.1 g/dL (6.4-8.9)
[2020-07-05 20:23] LABS: Potassium 5.5 mmol/L (3.5-5.0)
[2020-07-05] MEDS ORDERED: Methylnaltrexone SQ (NF) 12 MG/0.6 ML VIAL SUBCUT ONE (21:00)
[2020-07-06] MEDS: Midazolam 50 MG VIAL IV DRIP 50 ML IV SCH ×7 (00:30→22:41)
[2020-07-06] MEDS: Propofol 10 mg/ml 100 ML BTL 100 ML IV SCH ×8 (00:31→22:40)
[2020-07-06] MEDS: Albuterol/Ipratropium NEB.SOL (2.5/0.5 MG) 3 ML NEB.SOLN INH SCH ×4 (00:49→19:30)
[2020-07-06] MEDS: Chlorhexidine MOUTHWASH 0.12% 15 ML UDC TOPICAL SCH ×6 (01:19→20:51)
[2020-07-06] MEDS: Enoxaparin 100 MG/ML SYR SUBCUT SCH ×2 (03:07→15:52)
[2020-07-06 05:00] LABS: Hematocrit 31 % (35-47); Hemoglobin 9.3 g/dL (12.0-16.0); Mean Corpuscular HGB Conc 30 g/dL (31-36); Mean Corpuscular Hemoglobin 23 pg (27-31); Mean Corpuscular Volume 77 fL (80-97); Mean Platelet Volume 9.4 fL (7.4-10.4); Platelet Count 281 10^3/uL (150-450); Red Blood Count 3.99 10^6 /uL (3.70-4.87); Red Cell Distribution Width 20 % (10-15); White Blood Count 6.9 10^3/uL (3.5-10.8)
[2020-07-06 05:15] LABS: BUN/Creatinine Ratio 45.7 (8-20); Calcium 8.4 mg/dL (8.6-10.3); EGFR African American 97.9 (>60); EGFR Non-African American 80.9 (>60); Magnesium 2.7 mg/dL (1.9-2.7); Phosphorus 4.2 mg/dL (2.5-5.0)
[2020-07-06 05:22] LABS: Potassium 5.5 mmol/L (3.5-5.0)
[2020-07-06] MEDS: Pantoprazole VIAL 40 MG VIAL IV SCH (05:24)
[2020-07-06 06:31] LABS: Polychromasia 1+
[2020-07-06 06:32] LABS: ABS Lymphocytes 0.4 10^3/ul (1.0-4.8); ABS Monocytes 0.3 10^3/ul (0-0.8); ABS Neutrophils 6.2 10^3/ul (1.5-7.7); Lymphocyte % 5.7 %; Nucleated Red Blood Cells % 0.3
[2020-07-06] MEDS: methylPREDNISolone SOD 40 mg/ml 1 ml VIAL IV SCH ×2 (07:48→20:51)
[2020-07-06] MEDS: Polyethylene Glycol 3350 17 GM PACKET PO SCH (07:48)
[2020-07-06] MEDS: Docusate LIQ 100 MG/10 ML UDC PO SCH ×2 (07:48→20:51)
[2020-07-06] MEDS: Nystatin TOP POWDER 15 GM BTL TOPICAL SCH ×3 (08:21→20:52)
[2020-07-06] MEDS: fentaNYL INFUSION 50 MCG/ML 2,500 MCG/50 ML BAG IV SCH ×2 (08:55→17:56)
[2020-07-06] MEDS ORDERED: Insulin GLARGINE 100 un/ml 10 ml VIAL SUBCUT ONE (10:24)
[2020-07-06] MEDS: Saline FLUSH-CENTRAL 10 ML SYRINGE CENT\\PICC SCH (11:22)
[2020-07-06] MEDS ORDERED: Insulin GLARGINE 100 un/ml 10 ml VIAL ONE (11:25)
[2020-07-06] MEDS: Patiromer POWDER 8.4 GM PAK PO SCH (11:39)
[2020-07-06] MEDS: Cisatracurium 100 MG in NS 0.9% 250 ml 200 ML IV SCH ×3 (11:45→22:40)
[2020-07-06] MEDS ORDERED: Furosemide 40 mg/4 ml IV VIAL IV SLOW PU ONE (11:56)
[2020-07-06] MEDS: Artificial Tear OPHTH.OINT 3.5 GM BOTH EYES PRN ×2 (12:00→15:59)
[2020-07-06 17:01] LABS: BUN/Creatinine Ratio 49.4 (8-20); Calcium 8.6 mg/dL (8.6-10.3); EGFR African American 100.8 (>60); EGFR Non-African American 83.3 (>60); Magnesium 2.5 mg/dL (1.9-2.7); Potassium 5.4 mmol/L (3.5-5.0)
[2020-07-06] MEDS ORDERED: Insulin GLARGINE 100 un/ml 10 ml VIAL SUBCUT SCH (21:00)
[2020-07-07] MEDS: Propofol 10 mg/ml 100 ML BTL 100 ML IV SCH ×5 (00:36→20:22)
[2020-07-07] MEDS: Saline FLUSH-CENTRAL 10 ML SYRINGE CENT\\PICC SCH ×3 (00:37→21:57)
[2020-07-07] MEDS: Albuterol/Ipratropium NEB.SOL (2.5/0.5 MG) 3 ML NEB.SOLN INH SCH ×4 (01:10→20:24)
[2020-07-07] MEDS: Cisatracurium 100 MG in NS 0.9% 250 ml 200 ML IV SCH ×4 (01:58→20:20)
[2020-07-07] MEDS: Midazolam 50 MG VIAL IV DRIP 50 ML IV SCH ×5 (02:10→19:49)
[2020-07-07] MEDS: Chlorhexidine MOUTHWASH 0.12% 15 ML UDC TOPICAL SCH ×6 (02:14→21:57)
[2020-07-07] MEDS: Enoxaparin 100 MG/ML SYR SUBCUT SCH ×2 (03:52→16:30)
[2020-07-07 04:43] LABS: ABS Lymphocytes 0.5 10^3/ul (1.0-4.8); ABS Monocytes 0.3 10^3/ul (0-0.8); ABS Neutrophils 6.5 10^3/ul (1.5-7.7); Eosinophil % 0.2 %; Hematocrit 30 % (35-47); Hemoglobin 9.3 g/dL (12.0-16.0); Lymphocyte % 6.6 %; Mean Corpuscular HGB Conc 32 g/dL (31-36); Mean Corpuscular Hemoglobin 24 pg (27-31); Mean Corpuscular Volume 76 fL (80-97); Mean Platelet Volume 9.6 fL (7.4-10.4); Nucleated Red Blood Cells % 0.3; Platelet Count 257 10^3/uL (150-450); Red Blood Count 3.93 10^6 /uL (3.70-4.87); Red Cell Distribution Width 20 % (10-15); White Blood Count 7.3 10^3/uL (3.5-10.8)
[2020-07-07 04:51] LABS: BUN/Creatinine Ratio 49.3 (8-20); EGFR Non-African American 88.5 (>60); Magnesium 2.3 mg/dL (1.9-2.7); Phosphorus 3.8 mg/dL (2.5-5.0)
[2020-07-07 04:53] LABS: Potassium 5.1 mmol/L (3.5-5.0)
[2020-07-07] MEDS: Pantoprazole VIAL 40 MG VIAL IV SCH (06:15)
[2020-07-07] MEDS: methylPREDNISolone SOD 40 mg/ml 1 ml VIAL IV SCH (08:54)
[2020-07-07] MEDS: Polyethylene Glycol 3350 17 GM PACKET PO SCH (08:54)
[2020-07-07] MEDS: Patiromer POWDER 8.4 GM PAK PO SCH (08:54)
[2020-07-07] MEDS: Docusate LIQ 100 MG/10 ML UDC PO SCH ×2 (08:55→21:05)
[2020-07-07] MEDS ORDERED: Insulin GLARGINE 100 un/ml 10 ml VIAL SUBCUT SCH (09:00)
[2020-07-07] MEDS: [UNRECOGNIZED DRUG - OTHER] IV SCH ×3 (11:25→20:20)
[2020-07-07] MEDS: Nystatin TOP POWDER 15 GM BTL TOPICAL SCH ×3 (12:11→21:06)
[2020-07-07] MEDS ORDERED: Insulin GLARGINE 100 un/ml 10 ml VIAL SUBCUT ONE (14:01)
[2020-07-07] MEDS: fentaNYL INFUSION 50 MCG/ML 2,500 MCG/50 ML BAG IV SCH (14:09)
[2020-07-07] MEDS: Artificial Tear OPHTH.OINT 3.5 GM BOTH EYES PRN (16:18)
[2020-07-07] MEDS ORDERED: Furosemide 40 mg/4 ml IV VIAL IV ONE (19:34)
[2020-07-08] MEDS: Cisatracurium 100 MG in NS 0.9% 250 ml 200 ML IV SCH ×2 (00:40→05:17)
[2020-07-08] MEDS: Propofol 10 mg/ml 100 ML BTL 100 ML IV SCH ×5 (00:51→21:35)
[2020-07-08] MEDS: Midazolam 50 MG VIAL IV DRIP 50 ML IV SCH ×5 (00:52→20:35)
[2020-07-08] MEDS: Albuterol/Ipratropium NEB.SOL (2.5/0.5 MG) 3 ML NEB.SOLN INH SCH ×4 (02:13→19:36)
[2020-07-08] MEDS: Chlorhexidine MOUTHWASH 0.12% 15 ML UDC TOPICAL SCH ×6 (02:17→21:27)
[2020-07-08] MEDS: Enoxaparin 100 MG/ML SYR SUBCUT SCH ×2 (03:05→17:40)
[2020-07-08] MEDS: fentaNYL INFUSION 50 MCG/ML 2,500 MCG/50 ML BAG IV SCH ×2 (03:21→20:34)
[2020-07-08 04:28] LABS: Hematocrit 30 % (35-47); Hemoglobin 9.3 g/dL (12.0-16.0); Mean Corpuscular HGB Conc 31 g/dL (31-36); Mean Corpuscular Hemoglobin 24 pg (27-31); Mean Corpuscular Volume 77 fL (80-97); Mean Platelet Volume 9.4 fL (7.4-10.4); Platelet Count 215 10^3/uL (150-450); Red Blood Count 3.88 10^6 /uL (3.70-4.87); Red Cell Distribution Width 19 % (10-15); White Blood Count 10.1 10^3/uL (3.5-10.8)
[2020-07-08 04:43] LABS: Anion Gap 3 mmol/L (2-11); BUN/Creatinine Ratio 53.2 (8-20); Blood Urea Nitrogen 33 mg/dL (6-24); CO2 Carbon Dioxide 34 mmol/L (22-32); Calcium 8.4 mg/dL (8.6-10.3); Chloride 107 mmol/L (101-111); EGFR African American 133.3 (>60); EGFR Non-African American 110.2 (>60); Glucose 111 mg/dL (70-100); Potassium 4.3 mmol/L (3.5-5.0); Sodium 144 mmol/L (135-145)
[2020-07-08] MEDS: Artificial Tear OPHTH.OINT 3.5 GM BOTH EYES PRN (05:07)
[2020-07-08] MEDS: Pantoprazole VIAL 40 MG VIAL IV SCH (06:18)
[2020-07-08] MEDS ORDERED: Furosemide 40 mg/4 ml IV VIAL IV ONE (08:21)
[2020-07-08] MEDS ORDERED: methylPREDNISolone SOD 40 mg/ml 1 ml VIAL IV SCH (09:00)
[2020-07-08] MEDS ORDERED: Dextrose 50% Syringe 50 ml 25 GM/50 ML SYRINGE IV PUSH PRN (09:05)
[2020-07-08] MEDS: Insulin GLARGINE 100 un/ml 10 ml VIAL SUBCUT SCH (09:43)
[2020-07-08] MEDS: Polyethylene Glycol 3350 17 GM PACKET PO SCH (09:43)
[2020-07-08] MEDS: Docusate LIQ 100 MG/10 ML UDC PO SCH ×2 (09:43→21:25)
[2020-07-08] MEDS: Nystatin TOP POWDER 15 GM BTL TOPICAL SCH ×3 (09:44→21:25)
[2020-07-08] MEDS: Saline FLUSH-CENTRAL 10 ML SYRINGE CENT\\PICC SCH ×2 (09:44→22:49)
[2020-07-08] MEDS: Patiromer POWDER 8.4 GM PAK PO SCH (09:44)
[2020-07-08 15:36] LABS: Magnesium 1.8 mg/dL (1.9-2.7)
[2020-07-08] MEDS: Magnesium Hydroxide LIQ 30 ML UDC PO SCH (21:25)
[2020-07-09] MEDS: Propofol 10 mg/ml 100 ML BTL 100 ML IV SCH ×5 (00:17→21:03)
[2020-07-09] MEDS: Albuterol/Ipratropium NEB.SOL (2.5/0.5 MG) 3 ML NEB.SOLN INH SCH ×4 (00:48→20:35)
[2020-07-09] MEDS: Chlorhexidine MOUTHWASH 0.12% 15 ML UDC TOPICAL SCH ×6 (02:03→21:12)
[2020-07-09] MEDS: Enoxaparin 100 MG/ML SYR SUBCUT SCH ×2 (04:08→15:34)
[2020-07-09 04:29] LABS: Hematocrit 29 % (35-47); Hemoglobin 9.1 g/dL (12.0-16.0); Mean Corpuscular HGB Conc 32 g/dL (31-36); Mean Corpuscular Hemoglobin 24 pg (27-31); Mean Corpuscular Volume 75 fL (80-97); Mean Platelet Volume 9.6 fL (7.4-10.4); Platelet Count 176 10^3/uL (150-450); Red Blood Count 3.85 10^6 /uL (3.70-4.87); Red Cell Distribution Width 20 % (10-15); White Blood Count 9.6 10^3/uL (3.5-10.8)
[2020-07-09] MEDS ORDERED: Propofol 10 MG/ML 20 ML BTL ONE ×2 (04:43→17:25)
[2020-07-09 04:54] LABS: BUN/Creatinine Ratio 63.6 (8-20); Calcium 8.2 mg/dL (8.6-10.3); EGFR African American 153.1 (>60); EGFR Non-African American 126.5 (>60); Magnesium 1.8 mg/dL (1.9-2.7); Potassium 4.1 mmol/L (3.5-5.0)
[2020-07-09] MEDS: Pantoprazole VIAL 40 MG VIAL IV SCH (06:30)
[2020-07-09] MEDS: Docusate LIQ 100 MG/10 ML UDC PO SCH ×2 (08:10→21:12)
[2020-07-09] MEDS: Polyethylene Glycol 3350 17 GM PACKET PO SCH (08:10)
[2020-07-09] MEDS: Nystatin TOP POWDER 15 GM BTL TOPICAL SCH ×3 (08:10→21:12)
[2020-07-09] MEDS: Magnesium Hydroxide LIQ 30 ML UDC PO SCH (08:10)
[2020-07-09] MEDS: Insulin GLARGINE 100 un/ml 10 ml VIAL SUBCUT SCH (08:10)
[2020-07-09] MEDS ORDERED: Magnesium Sulfate 2 gm BAG 2 GM/50 ML BAG IVPB ONE (08:32)
[2020-07-09] MEDS: Saline FLUSH-CENTRAL 10 ML SYRINGE CENT\\PICC SCH ×2 (11:36→22:18)
[2020-07-09] MEDS: fentaNYL INFUSION 50 MCG/ML 2,500 MCG/50 ML BAG IV SCH (14:37)
[2020-07-09] MEDS ORDERED: Furosemide 40 mg/4 ml IV VIAL IV ONE (14:42)
[2020-07-09] MEDS ORDERED: Furosemide 40 mg/4 ml IV VIAL ONE (14:43)
[2020-07-09] MEDS: Artificial Tear OPHTH.OINT 3.5 GM BOTH EYES PRN (17:48)
[2020-07-09] MEDS ORDERED: Furosemide 20 mg/2 ml IV VIAL IV SLOW PU ONE (20:41)
[2020-07-09] MEDS: Midazolam 50 MG VIAL IV DRIP 50 ML IV SCH (21:52)
[2020-07-10] MEDS: Albuterol/Ipratropium NEB.SOL (2.5/0.5 MG) 3 ML NEB.SOLN INH SCH ×5 (00:10→23:57)
[2020-07-10] MEDS: Chlorhexidine MOUTHWASH 0.12% 15 ML UDC TOPICAL SCH ×6 (01:02→22:08)
[2020-07-10] MEDS: Propofol 10 mg/ml 100 ML BTL 100 ML IV SCH ×9 (01:16→23:34)
[2020-07-10 01:17] LABS: % Iron Saturation 29 % (15-55); Iron 79 ug/dL (50-212); Total Iron Binding Capacity 269 mcg/dL (250-450); Transferrin 192 mg/dL (203-362); Unsaturated Iron Binding < 254 ug/dL
[2020-07-10] MEDS: Enoxaparin 100 MG/ML SYR SUBCUT SCH ×2 (03:00→16:48)
[2020-07-10 03:08] LABS: Ferritin 114.1 ng/mL (11-307)
[2020-07-10 04:42] LABS: Hematocrit 28 % (35-47); Hemoglobin 8.7 g/dL (12.0-16.0); Mean Corpuscular HGB Conc 32 g/dL (31-36); Mean Corpuscular Hemoglobin 24 pg (27-31); Mean Corpuscular Volume 76 fL (80-97); Mean Platelet Volume 9.1 fL (7.4-10.4); Platelet Count 141 10^3/uL (150-450); Red Cell Distribution Width 19 % (10-15); White Blood Count 8.2 10^3/uL (3.5-10.8)
[2020-07-10] MEDS ORDERED: Propofol 10 MG/ML 20 ML BTL ONE (04:44)
[2020-07-10 05:02] LABS: BUN/Creatinine Ratio 59.2 (8-20); Calcium 7.5 mg/dL (8.6-10.3); EGFR African American 174.9 (>60); EGFR Non-African American 144.6 (>60); Magnesium 1.9 mg/dL (1.9-2.7); Potassium 3.4 mmol/L (3.5-5.0)
[2020-07-10] MEDS: Pantoprazole VIAL 40 MG VIAL IV SCH (05:30)
[2020-07-10] MEDS: Midazolam 50 MG VIAL IV DRIP 50 ML IV SCH (06:58)
[2020-07-10] MEDS: fentaNYL INFUSION 50 MCG/ML 2,500 MCG/50 ML BAG IV SCH (07:43)
[2020-07-10] MEDS ORDERED: Potassium Chlor 20 meq TAB.ER PO ONE (07:58)
[2020-07-10] MEDS ORDERED: Magnesium Sulfate 2 gm BAG 2 GM/50 ML BAG IVPB ONE (07:59)
[2020-07-10] MEDS: Magnesium Hydroxide LIQ 30 ML UDC PO SCH ×2 (08:15→09:24)
[2020-07-10] MEDS: Polyethylene Glycol 3350 17 GM PACKET PO SCH ×3 (08:15→11:31)
[2020-07-10] MEDS: Docusate LIQ 100 MG/10 ML UDC PO SCH ×4 (08:15→21:41)
[2020-07-10] MEDS: Insulin GLARGINE 100 un/ml 10 ml VIAL SUBCUT SCH (08:15)
[2020-07-10 08:28] LABS: Albumin 2.6 g/dL (3.2-5.2); Globulin 2.5 g/dL (2-4); Indirect Bilirubin 0.4 mg/dL (0.3-1.0); Total Bilirubin 0.9 mg/dL (0.2-1.0); Total Protein 5.1 g/dL (6.4-8.9)
[2020-07-10] MEDS ORDERED: Potassium Chloride LIQUID 20 MEQ/15 ML LIQUID PEG TUBE ONE (09:00)
[2020-07-10] MEDS: Saline FLUSH-CENTRAL 10 ML SYRINGE CENT\\PICC SCH ×2 (10:44→23:30)
[2020-07-10] MEDS: Nystatin TOP POWDER 15 GM BTL TOPICAL SCH ×3 (11:30→21:23)
[2020-07-10] MEDS ORDERED: Metoclopramide 5 MG/ML VIAL (10 mg) IV SLOW PU ONE (14:56)
[2020-07-10] MEDS ORDERED: Metoclopramide 5 MG/ML VIAL (10 mg) IV PRN (19:07)
[2020-07-11] MEDS: Propofol 10 mg/ml 100 ML BTL 100 ML IV SCH ×8 (01:06→23:35)
[2020-07-11] MEDS: Chlorhexidine MOUTHWASH 0.12% 15 ML UDC TOPICAL SCH ×6 (02:47→21:17)
[2020-07-11] MEDS: Enoxaparin 100 MG/ML SYR SUBCUT SCH ×2 (04:47→15:07)
[2020-07-11 05:15] LABS: Hematocrit 29 % (35-47); Hemoglobin 9.2 g/dL (12.0-16.0); Mean Corpuscular HGB Conc 32 g/dL (31-36); Mean Corpuscular Hemoglobin 24 pg (27-31); Mean Corpuscular Volume 76 fL (80-97); Mean Platelet Volume 10.4 fL (7.4-10.4); Platelet Count 157 10^3/uL (150-450); Red Blood Count 3.81 10^6 /uL (3.70-4.87); Red Cell Distribution Width 20 % (10-15); White Blood Count 9.3 10^3/uL (3.5-10.8)
[2020-07-11 05:28] LABS: BUN/Creatinine Ratio 47.6 (8-20); Calcium 8.2 mg/dL (8.6-10.3); EGFR Non-African American 172.7 (>60); Magnesium 1.9 mg/dL (1.9-2.7); Potassium 3.9 mmol/L (3.5-5.0)
[2020-07-11] MEDS: Pantoprazole VIAL 40 MG VIAL IV SCH (06:21)
[2020-07-11] MEDS: Albuterol/Ipratropium NEB.SOL (2.5/0.5 MG) 3 ML NEB.SOLN INH SCH ×3 (08:02→20:07)
[2020-07-11] MEDS: Nystatin TOP POWDER 15 GM BTL TOPICAL SCH ×3 (08:37→21:17)
[2020-07-11] MEDS: Docusate LIQ 100 MG/10 ML UDC PO SCH ×2 (08:37→21:16)
[2020-07-11] MEDS: Polyethylene Glycol 3350 17 GM PACKET PO SCH (08:37)
[2020-07-11] MEDS: Insulin GLARGINE 100 un/ml 10 ml VIAL SUBCUT SCH (08:38)
[2020-07-11] MEDS: Saline FLUSH-CENTRAL 10 ML SYRINGE CENT\\PICC SCH ×2 (10:27→22:25)
[2020-07-11] MEDS ORDERED: Metoclopramide 5 MG/ML VIAL (10 mg) ONE (14:23)
[2020-07-11] MEDS ORDERED: Ondansetron 4 mg VIAL 2 MG/ML 2 ml VIAL ONE (14:23)
[2020-07-12] MEDS: Albuterol/Ipratropium NEB.SOL (2.5/0.5 MG) 3 ML NEB.SOLN INH SCH ×4 (01:05→19:24)
[2020-07-12] MEDS: Chlorhexidine MOUTHWASH 0.12% 15 ML UDC TOPICAL SCH ×3 (02:22→08:59)
[2020-07-12] MEDS: Propofol 10 mg/ml 100 ML BTL 100 ML IV SCH ×5 (02:23→07:24)
[2020-07-12] MEDS: Enoxaparin 100 MG/ML SYR SUBCUT SCH ×2 (04:03→16:55)
[2020-07-12 05:32] LABS: Hematocrit 29 % (35-47); Hemoglobin 9.1 g/dL (12.0-16.0); Mean Corpuscular HGB Conc 31 g/dL (31-36); Mean Corpuscular Hemoglobin 24 pg (27-31); Mean Corpuscular Volume 77 fL (80-97); Mean Platelet Volume 10.1 fL (7.4-10.4); Platelet Count 184 10^3/uL (150-450); Red Blood Count 3.77 10^6 /uL (3.70-4.87); Red Cell Distribution Width 19 % (10-15); White Blood Count 9.3 10^3/uL (3.5-10.8)
[2020-07-12 06:21] LABS: Calcium 8.1 mg/dL (8.6-10.3); Potassium 3.8 mmol/L (3.5-5.0)
[2020-07-12 06:26] LABS: BUN/Creatinine Ratio 34.1 (8-20); EGFR African American 214.9 (>60); EGFR Non-African American 177.6 (>60)
[2020-07-12] MEDS: Pantoprazole VIAL 40 MG VIAL IV SCH (06:35)
[2020-07-12] MEDS: Docusate LIQ 100 MG/10 ML UDC PO SCH ×2 (07:26→19:53)
[2020-07-12] MEDS: Insulin GLARGINE 100 un/ml 10 ml VIAL SUBCUT SCH (07:26)
[2020-07-12] MEDS: Polyethylene Glycol 3350 17 GM PACKET PO SCH (07:26)
[2020-07-12] MEDS ORDERED: Furosemide 20 mg/2 ml IV VIAL IV ONE (08:55)
[2020-07-12] MEDS: Nystatin TOP POWDER 15 GM BTL TOPICAL SCH ×3 (08:59→19:53)
[2020-07-12] MEDS: Saline FLUSH-CENTRAL 10 ML SYRINGE CENT\\PICC SCH (10:05)
[2020-07-12] MEDS ORDERED: fentaNYL 100 mcg/2 ml 50 MCG/ML VIAL IV SLOW PU ONE (19:40)
[2020-07-12] MEDS ORDERED: diPHENhydraMINE IV 50 MG/ML 1 ml VIAL (BENADRYL) IV ONE (22:08)
[2020-07-13] MEDS: Saline FLUSH-CENTRAL 10 ML SYRINGE CENT\\PICC SCH ×3 (00:30→22:56)
[2020-07-13] MEDS: Albuterol/Ipratropium NEB.SOL (2.5/0.5 MG) 3 ML NEB.SOLN INH SCH ×3 (00:47→14:18)
[2020-07-13] MEDS: Pantoprazole VIAL 40 MG VIAL IV SCH (04:30)
[2020-07-13] MEDS: Enoxaparin 100 MG/ML SYR SUBCUT SCH ×2 (04:31→16:06)
[2020-07-13 04:35] LABS: Hematocrit 29 % (35-47); Mean Corpuscular HGB Conc 31 g/dL (31-36); Mean Corpuscular Hemoglobin 24 pg (27-31); Mean Corpuscular Volume 77 fL (80-97); Mean Platelet Volume 9.4 fL (7.4-10.4); Platelet Count 207 10^3/uL (150-450); Red Blood Count 3.71 10^6 /uL (3.70-4.87); Red Cell Distribution Width 19 % (10-15); White Blood Count 8.2 10^3/uL (3.5-10.8)
[2020-07-13 04:53] LABS: BUN/Creatinine Ratio 30.8 (8-20); EGFR African American 227.6 (>60); EGFR Non-African American 188.1 (>60); Magnesium 1.8 mg/dL (1.9-2.7); Potassium 3.6 mmol/L (3.5-5.0)
[2020-07-13] MEDS: Nystatin TOP POWDER 15 GM BTL TOPICAL SCH ×3 (09:01→20:01)
[2020-07-13] MEDS: Docusate LIQ 100 MG/10 ML UDC PO SCH ×2 (09:34→20:01)
[2020-07-13] MEDS: Polyethylene Glycol 3350 17 GM PACKET PO SCH (09:34)
[2020-07-13] MEDS: Insulin GLARGINE 100 un/ml 10 ml VIAL SUBCUT SCH (10:03)
[2020-07-13] MEDS ORDERED: Albuterol/Ipratropium NEB.SOL (2.5/0.5 MG) 3 ML NEB.SOLN INH PRN (14:14)
[2020-07-13] MEDS ORDERED: Furosemide 40 mg/4 ml IV VIAL IV ONE (18:29)
[2020-07-13] MEDS ORDERED: diPHENhydraMINE IV 50 MG/ML 1 ml VIAL (BENADRYL) IV ONE (23:36)
[2020-07-14] MEDS: Enoxaparin 100 MG/ML SYR SUBCUT SCH ×2 (04:46→15:04)
[2020-07-14 05:53] LABS: Hematocrit 28 % (35-47); Hemoglobin 8.9 g/dL (12.0-16.0); Mean Corpuscular HGB Conc 32 g/dL (31-36); Mean Corpuscular Hemoglobin 25 pg (27-31); Mean Corpuscular Volume 77 fL (80-97); Platelet Count 210 10^3/uL (150-450); Red Blood Count 3.63 10^6 /uL (3.70-4.87); Red Cell Distribution Width 20 % (10-15); White Blood Count 7.6 10^3/uL (3.5-10.8)
[2020-07-14] MEDS: Pantoprazole VIAL 40 MG VIAL IV SCH (05:57)
[2020-07-14 06:11] LABS: BUN/Creatinine Ratio 28.6 (8-20); Calcium 8.1 mg/dL (8.6-10.3); EGFR Non-African American 172.7 (>60); Magnesium 1.8 mg/dL (1.9-2.7); Phosphorus 3.9 mg/dL (2.5-5.0); Potassium 3.4 mmol/L (3.5-5.0)
[2020-07-14 06:29] LABS: ABS Eosinophils 0.2 10^3/ul (0-0.6); ABS Monocytes 0.7 10^3/ul (0-0.8); ABS Neutrophils 5.6 10^3/ul (1.5-7.7); Eosinophil % 3.2 %; Lymphocyte % 13.1 %
[2020-07-14] MEDS ORDERED: Magnesium Sulfate 2 gm BAG 2 GM/50 ML BAG IVPB ONE (07:50)
[2020-07-14] MEDS: KCL 20 MEQ/100 ML IVPREMIX 20 MEQ/100 ML BAG IV SCH ×2 (10:25→12:28)
[2020-07-14] MEDS: Polyethylene Glycol 3350 17 GM PACKET PO SCH (10:33)
[2020-07-14] MEDS: Docusate LIQ 100 MG/10 ML UDC PO SCH ×2 (10:33→20:50)
[2020-07-14] MEDS: Nystatin TOP POWDER 15 GM BTL TOPICAL SCH ×2 (10:34→13:28)
[2020-07-14] MEDS: Saline FLUSH-CENTRAL 10 ML SYRINGE CENT\\PICC SCH (11:26)
[2020-07-15] MEDS: Saline FLUSH-CENTRAL 10 ML SYRINGE CENT\\PICC SCH (01:02)
[2020-07-15] MEDS: Enoxaparin 100 MG/ML SYR SUBCUT SCH ×2 (04:42→15:15)
[2020-07-15 05:04] LABS: Hematocrit 29 % (35-47); Hemoglobin 9.1 g/dL (12.0-16.0); Mean Corpuscular HGB Conc 32 g/dL (31-36); Mean Corpuscular Hemoglobin 25 pg (27-31); Mean Corpuscular Volume 78 fL (80-97); Mean Platelet Volume 8.6 fL (7.4-10.4); Platelet Count 226 10^3/uL (150-450); Red Blood Count 3.72 10^6 /uL (3.70-4.87); Red Cell Distribution Width 20 % (10-15); White Blood Count 7.2 10^3/uL (3.5-10.8)
[2020-07-15 05:16] LABS: BUN/Creatinine Ratio 31.7 (8-20); Calcium 8.3 mg/dL (8.6-10.3); EGFR African American 214.9 (>60); EGFR Non-African American 177.6 (>60); Magnesium 2.1 mg/dL (1.9-2.7); Phosphorus 4.6 mg/dL (2.5-5.0)
[2020-07-15 07:41] LABS: ABS Basophils 0.1 10^3/ul (0-0.2); ABS Eosinophils 0.3 10^3/ul (0-0.6); ABS Lymphocytes 0.8 10^3/ul (1.0-4.8); ABS Monocytes 0.6 10^3/ul (0-0.8); ABS Neutrophils 5.3 10^3/ul (1.5-7.7); Eosinophil % 4.6 %; Polychromasia 2+
[2020-07-15] MEDS: Polyethylene Glycol 3350 17 GM PACKET PO SCH (07:49)
[2020-07-15] MEDS: Docusate LIQ 100 MG/10 ML UDC PO SCH (07:49)
[2020-07-16] MEDS: Enoxaparin 100 MG/ML SYR SUBCUT SCH ×2 (04:50→16:47)
[2020-07-16 05:41] LABS: ABS Eosinophils 0.4 10^3/ul (0-0.6); ABS Lymphocytes 0.7 10^3/ul (1.0-4.8); ABS Monocytes 0.5 10^3/ul (0-0.8); ABS Neutrophils 5.2 10^3/ul (1.5-7.7); Eosinophil % 6.3 %; Hematocrit 29 % (35-47); Hemoglobin 9.2 g/dL (12.0-16.0); Lymphocyte % 9.7 %; Mean Corpuscular HGB Conc 32 g/dL (31-36); Mean Corpuscular Hemoglobin 25 pg (27-31); Mean Corpuscular Volume 78 fL (80-97); Mean Platelet Volume 8.6 fL (7.4-10.4); Nucleated Red Blood Cells % 0.1; Platelet Count 212 10^3/uL (150-450); Red Blood Count 3.72 10^6 /uL (3.70-4.87); Red Cell Distribution Width 23 % (10-15); White Blood Count 6.8 10^3/uL (3.5-10.8)
[2020-07-16 05:51] LABS: BUN/Creatinine Ratio 32.5 (8-20); Calcium 8.9 mg/dL (8.6-10.3); EGFR African American 221.1 (>60); EGFR Non-African American 182.7 (>60); Phosphorus 4.9 mg/dL (2.5-5.0); Potassium 4.2 mmol/L (3.5-5.0)
[2020-07-16 05:56] LABS: Polychromasia 1+
[2020-07-17] MEDS: Enoxaparin 100 MG/ML SYR SUBCUT SCH ×2 (04:12→16:54)
[2020-07-17] MEDS: Nystatin TOP POWDER 15 GM BTL TOPICAL SCH (23:52)
[2020-07-18] MEDS: Enoxaparin 100 MG/ML SYR SUBCUT SCH ×2 (04:12→16:45)
[2020-07-18 04:59] LABS: ABS Eosinophils 0.6 10^3/ul (0-0.6); ABS Lymphocytes 0.6 10^3/ul (1.0-4.8); ABS Monocytes 0.3 10^3/ul (0-0.8); ABS Neutrophils 3.6 10^3/ul (1.5-7.7); Eosinophil % 12.5 %; Hematocrit 31 % (35-47); Lymphocyte % 10.8 %; Mean Corpuscular HGB Conc 32 g/dL (31-36); Mean Corpuscular Hemoglobin 25 pg (27-31); Mean Corpuscular Volume 79 fL (80-97); Mean Platelet Volume 8.1 fL (7.4-10.4); Platelet Count 176 10^3/uL (150-450); Red Blood Count 3.96 10^6 /uL (3.70-4.87); Red Cell Distribution Width 23 % (10-15); White Blood Count 5.2 10^3/uL (3.5-10.8)
[2020-07-18 05:10] LABS: Calcium 8.6 mg/dL (8.6-10.3); EGFR African American 221.1 (>60); EGFR Non-African American 182.7 (>60); Magnesium 1.8 mg/dL (1.9-2.7); Potassium 4.1 mmol/L (3.5-5.0)
[2020-07-18 05:29] LABS: Phosphorus 4.4 mg/dL (2.5-5.0)
[2020-07-18] MEDS: Nystatin TOP POWDER 15 GM BTL TOPICAL SCH ×3 (08:06→21:10)
[2020-07-18] MEDS ORDERED: Magnesium Sulfate 2 gm BAG 2 GM/50 ML BAG IVPB ONE (09:33)
[2020-07-19] MEDS: Enoxaparin 100 MG/ML SYR SUBCUT SCH ×2 (06:24→16:06)
[2020-07-19 06:52] LABS: Hematocrit 32 % (35-47); Hemoglobin 10.3 g/dL (12.0-16.0); Mean Corpuscular HGB Conc 32 g/dL (31-36); Mean Corpuscular Hemoglobin 26 pg (27-31); Mean Corpuscular Volume 79 fL (80-97); Mean Platelet Volume 8.4 fL (7.4-10.4); Platelet Count 176 10^3/uL (150-450); Red Blood Count 4.02 10^6 /uL (3.70-4.87); Red Cell Distribution Width 25 % (10-15); White Blood Count 5.5 10^3/uL (3.5-10.8)
[2020-07-19 07:08] LABS: BUN/Creatinine Ratio 26.2 (8-20); Calcium 8.5 mg/dL (8.6-10.3); EGFR Non-African American 172.7 (>60); Potassium 4.3 mmol/L (3.5-5.0)
[2020-07-19] MEDS: Nystatin TOP POWDER 15 GM BTL TOPICAL SCH ×3 (09:00→21:29)
[2020-07-20] MEDS: Enoxaparin 100 MG/ML SYR SUBCUT SCH ×2 (04:58→17:21)
[2020-07-20 06:04] LABS: Hematocrit 33 % (35-47); Hemoglobin 10.5 g/dL (12.0-16.0); Mean Corpuscular HGB Conc 32 g/dL (31-36); Mean Corpuscular Hemoglobin 26 pg (27-31); Mean Corpuscular Volume 80 fL (80-97); Mean Platelet Volume 8.4 fL (7.4-10.4); Platelet Count 164 10^3/uL (150-450); Red Cell Distribution Width 25 % (10-15); White Blood Count 5.9 10^3/uL (3.5-10.8)
[2020-07-20 06:20] LABS: Calcium 8.7 mg/dL (8.6-10.3); EGFR African American 221.1 (>60); EGFR Non-African American 182.7 (>60); Potassium 4.1 mmol/L (3.5-5.0)
[2020-07-20] MEDS: Nystatin TOP POWDER 15 GM BTL TOPICAL SCH ×2 (10:00→16:45)
[2020-07-21] MEDS: Nystatin TOP POWDER 15 GM BTL TOPICAL SCH ×3 (00:16→23:38)
[2020-07-21] MEDS: Enoxaparin 100 MG/ML SYR SUBCUT SCH ×2 (04:02→15:43)
[2020-07-21] MEDS: Multivitamins/Minerals TAB PO SCH (09:09)
[2020-07-22] MEDS: Enoxaparin 100 MG/ML SYR SUBCUT SCH ×2 (04:25→15:57)
[2020-07-22 04:49] LABS: Hematocrit 34 % (35-47); Hemoglobin 10.9 g/dL (12.0-16.0); Mean Corpuscular HGB Conc 32 g/dL (31-36); Mean Corpuscular Hemoglobin 26 pg (27-31); Mean Corpuscular Volume 81 fL (80-97); Mean Platelet Volume 9.3 fL (7.4-10.4); Platelet Count 175 10^3/uL (150-450); Red Blood Count 4.25 10^6 /uL (3.70-4.87); Red Cell Distribution Width 25 % (10-15); White Blood Count 5.9 10^3/uL (3.5-10.8)
[2020-07-22 05:05] LABS: ABS Basophils 0.1 10^3/ul (0-0.2); ABS Eosinophils 1.5 10^3/ul (0-0.6); ABS Lymphocytes 0.9 10^3/ul (1.0-4.8); ABS Monocytes 0.5 10^3/ul (0-0.8); ABS Neutrophils 2.9 10^3/ul (1.5-7.7); Calcium 9.1 mg/dL (8.6-10.3); Eosinophil % 25.8 %; Lymphocyte % 16.1 %; Magnesium 1.9 mg/dL (1.9-2.7); Nucleated Red Blood Cells % 0.1; Potassium 3.9 mmol/L (3.5-5.0)
[2020-07-22 05:58] LABS: BUN/Creatinine Ratio 31.1 (8-20); EGFR Non-African American 159.5 (>60)
[2020-07-22] MEDS: Nystatin TOP POWDER 15 GM BTL TOPICAL SCH ×3 (11:19→22:30)
[2020-07-22] MEDS: Multivitamins/Minerals TAB PO SCH (13:31)
[2020-07-22] MEDS: Neomycin/Polym/Bacit TOP OINT 15 GM TOPICAL SCH (22:28)
[2020-07-23] MEDS: Enoxaparin 100 MG/ML SYR SUBCUT SCH (05:02)
[2020-07-23] MEDS: Multivitamins/Minerals TAB PO SCH (10:08)
[2020-07-23] MEDS: Neomycin/Polym/Bacit TOP OINT 15 GM TOPICAL SCH ×2 (12:00→22:28)
[2020-07-23] MEDS: Nystatin TOP POWDER 15 GM BTL TOPICAL SCH ×3 (12:00→22:27)
[2020-07-24] MEDS: Multivitamins/Minerals TAB PO SCH (09:18)
[2020-07-24] MEDS: Neomycin/Polym/Bacit TOP OINT 15 GM TOPICAL SCH ×2 (09:18→21:48)
[2020-07-24] MEDS: Enoxaparin 100 MG/ML SYR SUBCUT SCH (09:19)
[2020-07-24] MEDS: Nystatin TOP POWDER 15 GM BTL TOPICAL SCH ×3 (09:19→21:48)
[2020-07-25 07:40] VITALS: BP 147/77
[2020-07-25] MEDS: Enoxaparin 100 MG/ML SYR SUBCUT SCH (10:08)
[2020-07-25] MEDS: Multivitamins/Minerals TAB PO SCH (10:12)
[2020-07-25] MEDS: Neomycin/Polym/Bacit TOP OINT 15 GM TOPICAL SCH (10:12)
[2020-07-25] MEDS: Nystatin TOP POWDER 15 GM BTL TOPICAL SCH (10:12)
== END 2020-07-25 11:20 | DRG 710 ==
LOC: ED 17:15 → ICU 22:02 → MED 07-20 16:11 → SSU 07-21 21:55
PROVIDERS: ADMIT Student in an Organized Health Care Education/Training Program; ATTEND Hospitalist

== ENCOUNTER 2020-07-25 10:27 | Inpatient (IN) ==
[2020-07-25] MEDS ORDERED: Senna TAB 8.6 mg TAB PO PRN (12:14)
[2020-07-25] MEDS ORDERED: Albuterol/Ipratropium NEB.SOL (2.5/0.5 MG) 3 ML NEB.SOLN INH PRN (13:07)
[2020-07-25] MEDS: Nystatin TOP POWDER 15 GM BTL TOPICAL SCH ×2 (15:23→21:41)
[2020-07-25] MEDS: Enoxaparin 40 MG/0.4 ML SYR SUBCUT SCH (15:24)
[2020-07-25] MEDS: Neomycin/Polym/Bacit TOP OINT 15 GM TOPICAL SCH (21:41)
[2020-07-26 04:36] LABS: Hematocrit 35 % (35-47); Hemoglobin 10.9 g/dL (12.0-16.0); Mean Corpuscular HGB Conc 31 g/dL (31-36); Mean Corpuscular Hemoglobin 25 pg (27-31); Mean Corpuscular Volume 81 fL (80-97); Mean Platelet Volume 8.5 fL (7.4-10.4); Platelet Count 245 10^3/uL (150-450); Red Blood Count 4.28 10^6 /uL (3.70-4.87); Red Cell Distribution Width 25 % (10-15); White Blood Count 5.2 10^3/uL (3.5-10.8)
[2020-07-26 04:51] LABS: Albumin 3.5 g/dL (3.2-5.2); Albumin/Globulin Ratio 1.3 (1-3); BUN/Creatinine Ratio 24.5 (8-20); Calcium 9.1 mg/dL (8.6-10.3); EGFR African American 159.8 (>60); EGFR Non-African American 132.1 (>60); Globulin 2.7 g/dL (2-4); Potassium 3.9 mmol/L (3.5-5.0); Total Bilirubin 0.4 mg/dL (0.2-1.0); Total Protein 6.2 g/dL (6.4-8.9)
[2020-07-26 05:55] LABS: Microcytosis 1+
[2020-07-26 05:56] LABS: Polychromasia 1+
[2020-07-26 05:57] LABS: ABS Eosinophils 0.7 10^3/ul (0-0.6); ABS Lymphocytes 1.2 10^3/ul (1.0-4.8); ABS Monocytes 0.5 10^3/ul (0-0.8); ABS Neutrophils 2.7 10^3/ul (1.5-7.7); Eosinophil % 13.7 %; Lymphocyte % 23.2 %; Nucleated Red Blood Cells % 0.1
[2020-07-26] MEDS: Multivitamins/Minerals TAB PO SCH (08:26)
[2020-07-26] MEDS: Nystatin TOP POWDER 15 GM BTL TOPICAL SCH ×3 (08:27→20:19)
[2020-07-26] MEDS: Neomycin/Polym/Bacit TOP OINT 15 GM TOPICAL SCH ×2 (08:27→20:19)
[2020-07-26] MEDS: Enoxaparin 40 MG/0.4 ML SYR SUBCUT SCH (14:10)
[2020-07-27] MEDS: Multivitamins/Minerals TAB PO SCH (08:47)
[2020-07-27] MEDS: Nystatin TOP POWDER 15 GM BTL TOPICAL SCH ×3 (10:00→21:02)
[2020-07-27] MEDS: Neomycin/Polym/Bacit TOP OINT 15 GM TOPICAL SCH ×2 (14:03→21:02)
[2020-07-27] MEDS: Enoxaparin 40 MG/0.4 ML SYR SUBCUT SCH (14:23)
[2020-07-28] MEDS: Multivitamins/Minerals TAB PO SCH (09:04)
[2020-07-28] MEDS: Neomycin/Polym/Bacit TOP OINT 15 GM TOPICAL SCH ×2 (09:06→20:19)
[2020-07-28] MEDS: Nystatin TOP POWDER 15 GM BTL TOPICAL SCH ×3 (09:06→20:22)
[2020-07-28] MEDS: Enoxaparin 40 MG/0.4 ML SYR SUBCUT SCH (13:10)
[2020-07-28 21:57] LABS: Urine Appearance Cloudy; Urine Bilirubin Negative (Negative); Urine Blood Negative (Negative); Urine Color Yellow; Urine Glucose Negative (Negative); Urine Ketones Negative (Negative); Urine Nitrite Negative (Negative); Urine Protein Negative (Negative); Urine Specific Gravity 1.018 (1.010-1.030); Urine Urobilinogen Negative (Negative)
[2020-07-29] MEDS: Multivitamins/Minerals TAB PO SCH (08:35)
[2020-07-29] MEDS: Neomycin/Polym/Bacit TOP OINT 15 GM TOPICAL SCH ×2 (09:45→21:05)
[2020-07-29] MEDS: Nystatin TOP POWDER 15 GM BTL TOPICAL SCH ×3 (09:45→21:05)
[2020-07-29] MEDS: Enoxaparin 40 MG/0.4 ML SYR SUBCUT SCH (12:38)
[2020-07-30] MEDS: Multivitamins/Minerals TAB PO SCH (08:04)
[2020-07-30] MEDS: Nystatin TOP POWDER 15 GM BTL TOPICAL SCH ×3 (11:00→20:54)
[2020-07-30] MEDS: Neomycin/Polym/Bacit TOP OINT 15 GM TOPICAL SCH ×2 (11:00→20:53)
[2020-07-30] MEDS: Enoxaparin 40 MG/0.4 ML SYR SUBCUT SCH (14:10)
[2020-07-31] MEDS: Multivitamins/Minerals TAB PO SCH (09:33)
[2020-07-31] MEDS: Neomycin/Polym/Bacit TOP OINT 15 GM TOPICAL SCH ×2 (11:43→20:36)
[2020-07-31] MEDS: Nystatin TOP POWDER 15 GM BTL TOPICAL SCH ×3 (11:44→20:36)
[2020-07-31] MEDS: Enoxaparin 40 MG/0.4 ML SYR SUBCUT SCH (13:53)
[2020-08-01 04:29] LABS: ABS Basophils 0.1 10^3/ul (0-0.2); ABS Eosinophils 0.3 10^3/ul (0-0.6); ABS Lymphocytes 1.5 10^3/ul (1.0-4.8); ABS Monocytes 0.6 10^3/ul (0-0.8); ABS Neutrophils 7.9 10^3/ul (1.5-7.7); Eosinophil % 3.2 %; Hematocrit 34 % (35-47); Hemoglobin 11.1 g/dL (12.0-16.0); Lymphocyte % 14.1 %; Mean Corpuscular HGB Conc 33 g/dL (31-36); Mean Corpuscular Hemoglobin 26 pg (27-31); Mean Corpuscular Volume 80 fL (80-97); Mean Platelet Volume 8.4 fL (7.4-10.4); Platelet Count 259 10^3/uL (150-450); Red Blood Count 4.23 10^6 /uL (3.70-4.87); Red Cell Distribution Width 24 % (10-15); White Blood Count 10.4 10^3/uL (3.5-10.8)
[2020-08-01 04:41] LABS: Albumin 3.5 g/dL (3.2-5.2); Albumin/Globulin Ratio 1.3 (1-3); BUN/Creatinine Ratio 23.7 (8-20); Calcium 9.5 mg/dL (8.6-10.3); EGFR African American 141.2 (>60); EGFR Non-African American 116.7 (>60); Globulin 2.7 g/dL (2-4); Potassium 3.8 mmol/L (3.5-5.0); Total Bilirubin 0.4 mg/dL (0.2-1.0); Total Protein 6.2 g/dL (6.4-8.9)
[2020-08-01] MEDS: Nystatin TOP POWDER 15 GM BTL TOPICAL SCH ×3 (09:11→21:42)
[2020-08-01] MEDS: Neomycin/Polym/Bacit TOP OINT 15 GM TOPICAL SCH ×2 (09:11→21:40)
[2020-08-01] MEDS: Multivitamins/Minerals TAB PO SCH (09:18)
[2020-08-01] MEDS: Enoxaparin 40 MG/0.4 ML SYR SUBCUT SCH (12:58)
[2020-08-02] MEDS: Multivitamins/Minerals TAB PO SCH (09:45)
[2020-08-02] MEDS: Nystatin TOP POWDER 15 GM BTL TOPICAL SCH ×3 (09:47→22:23)
[2020-08-02] MEDS: Neomycin/Polym/Bacit TOP OINT 15 GM TOPICAL SCH ×2 (12:49→23:03)
[2020-08-02] MEDS: Enoxaparin 40 MG/0.4 ML SYR SUBCUT SCH (13:05)
[2020-08-03] MEDS: Multivitamins/Minerals TAB PO SCH (10:21)
[2020-08-03] MEDS: Neomycin/Polym/Bacit TOP OINT 15 GM TOPICAL SCH ×2 (10:23→22:04)
[2020-08-03] MEDS: Nystatin TOP POWDER 15 GM BTL TOPICAL SCH ×3 (10:24→22:01)
[2020-08-03] MEDS: Enoxaparin 40 MG/0.4 ML SYR SUBCUT SCH (13:58)
[2020-08-04] MEDS: Multivitamins/Minerals TAB PO SCH (09:18)
[2020-08-04] MEDS: Neomycin/Polym/Bacit TOP OINT 15 GM TOPICAL SCH ×2 (09:24→21:24)
[2020-08-04] MEDS: Nystatin TOP POWDER 15 GM BTL TOPICAL SCH ×3 (09:24→21:18)
[2020-08-04] MEDS: Enoxaparin 40 MG/0.4 ML SYR SUBCUT SCH (13:30)
[2020-08-05] MEDS: Multivitamins/Minerals TAB PO SCH (09:55)
[2020-08-05] MEDS: Neomycin/Polym/Bacit TOP OINT 15 GM TOPICAL SCH ×2 (09:56→21:08)
[2020-08-05] MEDS: Nystatin TOP POWDER 15 GM BTL TOPICAL SCH ×3 (09:56→21:08)
[2020-08-05] MEDS: Enoxaparin 40 MG/0.4 ML SYR SUBCUT SCH (14:10)
[2020-08-06] MEDS: Multivitamins/Minerals TAB PO SCH (08:23)
[2020-08-06] MEDS: Nystatin TOP POWDER 15 GM BTL TOPICAL SCH ×3 (08:24→21:39)
[2020-08-06] MEDS: Neomycin/Polym/Bacit TOP OINT 15 GM TOPICAL SCH ×2 (10:12→21:39)
[2020-08-06] MEDS: Enoxaparin 40 MG/0.4 ML SYR SUBCUT SCH (14:35)
[2020-08-07] MEDS: Multivitamins/Minerals TAB PO SCH (08:31)
[2020-08-07] MEDS: Neomycin/Polym/Bacit TOP OINT 15 GM TOPICAL SCH ×2 (08:32→21:33)
[2020-08-07] MEDS: Nystatin TOP POWDER 15 GM BTL TOPICAL SCH ×3 (08:32→21:32)
[2020-08-07] MEDS: Enoxaparin 40 MG/0.4 ML SYR SUBCUT SCH (13:05)
[2020-08-08 06:45] LABS: ABS Eosinophils 0.8 10^3/ul (0-0.6); ABS Lymphocytes 1.3 10^3/ul (1.0-4.8); ABS Monocytes 0.4 10^3/ul (0-0.8); ABS Neutrophils 5.5 10^3/ul (1.5-7.7); Eosinophil % 9.8 %; Hematocrit 35 % (35-47); Hemoglobin 11.1 g/dL (12.0-16.0); Lymphocyte % 16.2 %; Mean Corpuscular HGB Conc 32 g/dL (31-36); Mean Corpuscular Hemoglobin 26 pg (27-31); Mean Corpuscular Volume 82 fL (80-97); Mean Platelet Volume 8.1 fL (7.4-10.4); Platelet Count 241 10^3/uL (150-450); Red Blood Count 4.23 10^6 /uL (3.70-4.87); Red Cell Distribution Width 24 % (10-15); White Blood Count 8.1 10^3/uL (3.5-10.8)
[2020-08-08 06:59] LABS: Albumin 3.5 g/dL (3.2-5.2); Albumin/Globulin Ratio 1.3 (1-3); BUN/Creatinine Ratio 23.5 (8-20); Calcium 9.1 mg/dL (8.6-10.3); Globulin 2.7 g/dL (2-4); Potassium 3.8 mmol/L (3.5-5.0); Total Bilirubin 0.4 mg/dL (0.2-1.0); Total Protein 6.2 g/dL (6.4-8.9)
[2020-08-08] MEDS: Multivitamins/Minerals TAB PO SCH (08:14)
[2020-08-08] MEDS: Nystatin TOP POWDER 15 GM BTL TOPICAL SCH ×3 (08:15→20:33)
[2020-08-08] MEDS: Neomycin/Polym/Bacit TOP OINT 15 GM TOPICAL SCH ×2 (09:41→20:33)
[2020-08-08] MEDS: Enoxaparin 40 MG/0.4 ML SYR SUBCUT SCH (13:02)
[2020-08-09] MEDS: Nystatin TOP POWDER 15 GM BTL TOPICAL SCH ×3 (10:50→20:39)
[2020-08-09] MEDS: Neomycin/Polym/Bacit TOP OINT 15 GM TOPICAL SCH ×2 (10:50→20:39)
[2020-08-09] MEDS: Multivitamins/Minerals TAB PO SCH (10:50)
[2020-08-09] MEDS: Enoxaparin 40 MG/0.4 ML SYR SUBCUT SCH (13:52)
[2020-08-10] MEDS: Nystatin TOP POWDER 15 GM BTL TOPICAL SCH ×3 (11:22→21:36)
[2020-08-10] MEDS: Neomycin/Polym/Bacit TOP OINT 15 GM TOPICAL SCH ×2 (11:22→21:36)
[2020-08-10] MEDS: Multivitamins/Minerals TAB PO SCH (11:22)
[2020-08-10] MEDS: Enoxaparin 40 MG/0.4 ML SYR SUBCUT SCH (11:25)
[2020-08-11] MEDS: Nystatin TOP POWDER 15 GM BTL TOPICAL SCH ×3 (08:23→21:13)
[2020-08-11] MEDS: Neomycin/Polym/Bacit TOP OINT 15 GM TOPICAL SCH ×2 (08:23→21:14)
[2020-08-11] MEDS: Multivitamins/Minerals TAB PO SCH (08:59)
[2020-08-11] MEDS: Enoxaparin 40 MG/0.4 ML SYR SUBCUT SCH (14:38)
[2020-08-12] MEDS: Multivitamins/Minerals TAB PO SCH (08:32)
[2020-08-12] MEDS: Nystatin TOP POWDER 15 GM BTL TOPICAL SCH ×3 (08:32→20:31)
[2020-08-12] MEDS: Neomycin/Polym/Bacit TOP OINT 15 GM TOPICAL SCH ×2 (08:32→20:31)
[2020-08-12] MEDS: Enoxaparin 40 MG/0.4 ML SYR SUBCUT SCH (14:39)
[2020-08-13] MEDS: Nystatin TOP POWDER 15 GM BTL TOPICAL SCH ×3 (08:26→20:42)
[2020-08-13] MEDS: Multivitamins/Minerals TAB PO SCH (08:26)
[2020-08-13] MEDS: Neomycin/Polym/Bacit TOP OINT 15 GM TOPICAL SCH ×2 (08:37→20:42)
[2020-08-13] MEDS: Enoxaparin 40 MG/0.4 ML SYR SUBCUT SCH (12:55)
[2020-08-14] MEDS: Multivitamins/Minerals TAB PO SCH (08:23)
[2020-08-14] MEDS: Neomycin/Polym/Bacit TOP OINT 15 GM TOPICAL SCH ×2 (08:23→19:33)
[2020-08-14] MEDS: Nystatin TOP POWDER 15 GM BTL TOPICAL SCH ×3 (08:23→20:44)
[2020-08-14] MEDS: Enoxaparin 40 MG/0.4 ML SYR SUBCUT SCH (13:05)
[2020-08-15 05:56] LABS: ABS Eosinophils 0.7 10^3/ul (0-0.6); ABS Lymphocytes 1.5 10^3/ul (1.0-4.8); ABS Monocytes 0.5 10^3/ul (0-0.8); ABS Neutrophils 5.6 10^3/ul (1.5-7.7); Eosinophil % 8.6 %; Hematocrit 37 % (35-47); Hemoglobin 11.8 g/dL (12.0-16.0); Lymphocyte % 18.5 %; Mean Corpuscular HGB Conc 32 g/dL (31-36); Mean Corpuscular Hemoglobin 26 pg (27-31); Mean Corpuscular Volume 82 fL (80-97); Mean Platelet Volume 8.2 fL (7.4-10.4); Platelet Count 258 10^3/uL (150-450); Red Blood Count 4.49 10^6 /uL (3.70-4.87); Red Cell Distribution Width 23 % (10-15); White Blood Count 8.4 10^3/uL (3.5-10.8)
[2020-08-15 06:13] LABS: Albumin 3.8 g/dL (3.2-5.2); Albumin/Globulin Ratio 1.5 (1-3); BUN/Creatinine Ratio 25.4 (8-20); Calcium 9.3 mg/dL (8.6-10.3); EGFR African American 130.9 (>60); EGFR Non-African American 108.2 (>60); Globulin 2.5 g/dL (2-4); Total Bilirubin 0.4 mg/dL (0.2-1.0); Total Protein 6.3 g/dL (6.4-8.9)
[2020-08-15] MEDS: Multivitamins/Minerals TAB PO SCH (08:24)
[2020-08-15] MEDS: Nystatin TOP POWDER 15 GM BTL TOPICAL SCH ×3 (08:25→20:23)
[2020-08-15] MEDS: Neomycin/Polym/Bacit TOP OINT 15 GM TOPICAL SCH ×2 (08:25→20:27)
[2020-08-15] MEDS: Enoxaparin 40 MG/0.4 ML SYR SUBCUT SCH (13:50)
[2020-08-15] MEDS: oxyCODONE/Acetamin 5/325 mg TAB PO PRN (15:49)
[2020-08-16] MEDS: Multivitamins/Minerals TAB PO SCH (11:04)
[2020-08-16] MEDS: Nystatin TOP POWDER 15 GM BTL TOPICAL SCH ×3 (11:08→21:49)
[2020-08-16] MEDS: Neomycin/Polym/Bacit TOP OINT 15 GM TOPICAL SCH ×2 (11:13→21:50)
[2020-08-16] MEDS: Enoxaparin 40 MG/0.4 ML SYR SUBCUT SCH (12:46)
[2020-08-17] MEDS: Multivitamins/Minerals TAB PO SCH (10:45)
[2020-08-17] MEDS: Neomycin/Polym/Bacit TOP OINT 15 GM TOPICAL SCH ×2 (10:51→21:22)
[2020-08-17] MEDS: Nystatin TOP POWDER 15 GM BTL TOPICAL SCH ×3 (10:53→21:18)
[2020-08-17] MEDS: Enoxaparin 40 MG/0.4 ML SYR SUBCUT SCH (13:59)
[2020-08-17] MEDS: Al Hydrox/Mg Hydrox/Simet LIQ 30 ML UDC PO PRN (14:59)
[2020-08-18] MEDS: Multivitamins/Minerals TAB PO SCH (08:07)
[2020-08-18] MEDS: oxyCODONE/Acetamin 5/325 mg TAB PO SCH (08:08)
[2020-08-18] MEDS: Nystatin TOP POWDER 15 GM BTL TOPICAL SCH ×3 (08:30→20:03)
[2020-08-18] MEDS: Neomycin/Polym/Bacit TOP OINT 15 GM TOPICAL SCH ×2 (08:30→19:59)
[2020-08-18] MEDS: Enoxaparin 40 MG/0.4 ML SYR SUBCUT SCH (15:03)
[2020-08-19] MEDS: Nystatin TOP POWDER 15 GM BTL TOPICAL SCH (08:52)
[2020-08-19] MEDS: Multivitamins/Minerals TAB PO SCH (08:52)
[2020-08-19] MEDS: Neomycin/Polym/Bacit TOP OINT 15 GM TOPICAL SCH ×2 (08:52→20:38)
[2020-08-19] MEDS: oxyCODONE/Acetamin 5/325 mg TAB PO SCH (08:53)
[2020-08-19] MEDS: Enoxaparin 40 MG/0.4 ML SYR SUBCUT SCH (15:18)
[2020-08-20] MEDS: Multivitamins/Minerals TAB PO SCH (08:01)
[2020-08-20] MEDS: Neomycin/Polym/Bacit TOP OINT 15 GM TOPICAL SCH ×2 (08:06→20:57)
[2020-08-20] MEDS: oxyCODONE/Acetamin 5/325 mg TAB PO SCH (10:23)
[2020-08-20] MEDS: Enoxaparin 40 MG/0.4 ML SYR SUBCUT SCH (13:08)
[2020-08-21] MEDS: Multivitamins/Minerals TAB PO SCH (08:40)
[2020-08-21] MEDS: Neomycin/Polym/Bacit TOP OINT 15 GM TOPICAL SCH ×2 (08:47→21:42)
[2020-08-21] MEDS: oxyCODONE/Acetamin 5/325 mg TAB PO SCH (10:28)
[2020-08-21] MEDS: Enoxaparin 40 MG/0.4 ML SYR SUBCUT SCH (13:22)
[2020-08-21] MEDS: Al Hydrox/Mg Hydrox/Simet LIQ 30 ML UDC PO PRN (14:44)
[2020-08-22 07:23] LABS: ABS Basophils 0.1 10^3/ul (0-0.2); ABS Eosinophils 0.5 10^3/ul (0-0.6); ABS Lymphocytes 1.6 10^3/ul (1.0-4.8); ABS Monocytes 0.5 10^3/ul (0-0.8); ABS Neutrophils 5.8 10^3/ul (1.5-7.7); Eosinophil % 5.7 %; Hematocrit 36 % (35-47); Hemoglobin 11.8 g/dL (12.0-16.0); Lymphocyte % 18.9 %; Mean Corpuscular HGB Conc 33 g/dL (31-36); Mean Corpuscular Hemoglobin 27 pg (27-31); Mean Corpuscular Volume 82 fL (80-97); Mean Platelet Volume 8.3 fL (7.4-10.4); Platelet Count 355 10^3/uL (150-450); Red Blood Count 4.41 10^6 /uL (3.70-4.87); Red Cell Distribution Width 22 % (10-15); White Blood Count 8.5 10^3/uL (3.5-10.8)
[2020-08-22 07:40] LABS: Albumin 3.7 g/dL (3.2-5.2); Albumin/Globulin Ratio 1.4 (1-3); BUN/Creatinine Ratio 25.9 (8-20); Calcium 9.4 mg/dL (8.6-10.3); Globulin 2.6 g/dL (2-4); Potassium 4.1 mmol/L (3.5-5.0); Total Bilirubin 0.3 mg/dL (0.2-1.0); Total Protein 6.3 g/dL (6.4-8.9)
[2020-08-22] MEDS: Multivitamins/Minerals TAB PO SCH (08:18)
[2020-08-22] MEDS: Neomycin/Polym/Bacit TOP OINT 15 GM TOPICAL SCH ×2 (08:28→20:06)
[2020-08-22] MEDS: oxyCODONE/Acetamin 5/325 mg TAB PO SCH (10:13)
[2020-08-22] MEDS: Enoxaparin 40 MG/0.4 ML SYR SUBCUT SCH (13:22)
[2020-08-23] MEDS: Multivitamins/Minerals TAB PO SCH (11:45)
[2020-08-23] MEDS: oxyCODONE/Acetamin 5/325 mg TAB PO SCH (11:45)
[2020-08-23] MEDS: Enoxaparin 40 MG/0.4 ML SYR SUBCUT SCH (13:13)
[2020-08-23] MEDS: Neomycin/Polym/Bacit TOP OINT 15 GM TOPICAL SCH ×2 (13:18→20:10)
[2020-08-24] MEDS: Multivitamins/Minerals TAB PO SCH (10:27)
[2020-08-24] MEDS: oxyCODONE/Acetamin 5/325 mg TAB PO SCH (10:28)
[2020-08-24] MEDS: Neomycin/Polym/Bacit TOP OINT 15 GM TOPICAL SCH ×2 (10:29→21:15)
[2020-08-24] MEDS: Enoxaparin 40 MG/0.4 ML SYR SUBCUT SCH (14:32)
[2020-08-25] MEDS: oxyCODONE/Acetamin 5/325 mg TAB PO PRN (10:12)
[2020-08-25] MEDS: Multivitamins/Minerals TAB PO SCH (10:13)
[2020-08-25] MEDS: Neomycin/Polym/Bacit TOP OINT 15 GM TOPICAL SCH ×2 (10:14→21:28)
[2020-08-25] MEDS: Enoxaparin 40 MG/0.4 ML SYR SUBCUT SCH (13:06)
[2020-08-26] MEDS: Multivitamins/Minerals TAB PO SCH (08:49)
[2020-08-26] MEDS: Neomycin/Polym/Bacit TOP OINT 15 GM TOPICAL SCH ×2 (08:50→21:03)
[2020-08-26] MEDS: oxyCODONE/Acetamin 5/325 mg TAB PO PRN (10:30)
[2020-08-26] MEDS: Enoxaparin 40 MG/0.4 ML SYR SUBCUT SCH (13:42)
[2020-08-27] MEDS: Multivitamins/Minerals TAB PO SCH (08:47)
[2020-08-27] MEDS: Neomycin/Polym/Bacit TOP OINT 15 GM TOPICAL SCH ×2 (08:48→23:29)
[2020-08-27] MEDS: oxyCODONE/Acetamin 5/325 mg TAB PO PRN (10:57)
[2020-08-27] MEDS: Enoxaparin 40 MG/0.4 ML SYR SUBCUT SCH (13:15)
[2020-08-28] MEDS: Multivitamins/Minerals TAB PO SCH (08:48)
[2020-08-28] MEDS: Neomycin/Polym/Bacit TOP OINT 15 GM TOPICAL SCH ×2 (10:17→21:32)
[2020-08-28] MEDS: oxyCODONE/Acetamin 5/325 mg TAB PO PRN (11:10)
[2020-08-28] MEDS: Enoxaparin 40 MG/0.4 ML SYR SUBCUT SCH (13:17)
[2020-08-29] MEDS: Al Hydrox/Mg Hydrox/Simet LIQ 30 ML UDC PO PRN (00:13)
[2020-08-29 06:15] LABS: ABS Basophils 0.1 10^3/ul (0-0.2); ABS Eosinophils 0.5 10^3/ul (0-0.6); ABS Lymphocytes 1.8 10^3/ul (1.0-4.8); ABS Monocytes 0.5 10^3/ul (0-0.8); ABS Neutrophils 6.8 10^3/ul (1.5-7.7); Eosinophil % 4.9 %; Hematocrit 36 % (35-47); Hemoglobin 11.8 g/dL (12.0-16.0); Lymphocyte % 18.3 %; Mean Corpuscular HGB Conc 33 g/dL (31-36); Mean Corpuscular Hemoglobin 27 pg (27-31); Mean Corpuscular Volume 82 fL (80-97); Mean Platelet Volume 8.5 fL (7.4-10.4); Platelet Count 387 10^3/uL (150-450); Red Blood Count 4.39 10^6 /uL (3.70-4.87); Red Cell Distribution Width 21 % (10-15); White Blood Count 9.7 10^3/uL (3.5-10.8)
[2020-08-29 06:37] LABS: Albumin 3.7 g/dL (3.2-5.2); Albumin/Globulin Ratio 1.4 (1-3); BUN/Creatinine Ratio 18.3 (8-20); Calcium 9.5 mg/dL (8.6-10.3); EGFR Non-African American 94.2 (>60); Globulin 2.7 g/dL (2-4); Potassium 3.9 mmol/L (3.5-5.0); Total Bilirubin 0.3 mg/dL (0.2-1.0); Total Protein 6.4 g/dL (6.4-8.9)
[2020-08-29] MEDS: Multivitamins/Minerals TAB PO SCH (10:14)
[2020-08-29] MEDS: Neomycin/Polym/Bacit TOP OINT 15 GM TOPICAL SCH ×2 (10:15→20:48)
[2020-08-29] MEDS: oxyCODONE/Acetamin 5/325 mg TAB PO PRN (11:23)
[2020-08-29] MEDS: Enoxaparin 40 MG/0.4 ML SYR SUBCUT SCH (13:08)
[2020-08-30] MEDS: Multivitamins/Minerals TAB PO SCH (09:09)
[2020-08-30] MEDS: Neomycin/Polym/Bacit TOP OINT 15 GM TOPICAL SCH ×2 (09:12→22:11)
[2020-08-30] MEDS: Enoxaparin 40 MG/0.4 ML SYR SUBCUT SCH (13:02)
[2020-08-31] MEDS: Multivitamins/Minerals TAB PO SCH (11:09)
[2020-08-31] MEDS: Neomycin/Polym/Bacit TOP OINT 15 GM TOPICAL SCH ×2 (12:13→22:12)
[2020-08-31] MEDS: Enoxaparin 40 MG/0.4 ML SYR SUBCUT SCH (13:04)
[2020-09-01] MEDS: Multivitamins/Minerals TAB PO SCH (08:47)
[2020-09-01] MEDS: Neomycin/Polym/Bacit TOP OINT 15 GM TOPICAL SCH ×2 (08:48→21:33)
[2020-09-01] MEDS: oxyCODONE/Acetamin 5/325 mg TAB PO PRN (10:08)
[2020-09-01] MEDS: Enoxaparin 40 MG/0.4 ML SYR SUBCUT SCH (12:46)
[2020-09-02] MEDS: Multivitamins/Minerals TAB PO SCH (08:57)
[2020-09-02] MEDS: Neomycin/Polym/Bacit TOP OINT 15 GM TOPICAL SCH ×2 (08:59→21:28)
[2020-09-02] MEDS: Enoxaparin 40 MG/0.4 ML SYR SUBCUT SCH (13:37)
[2020-09-03] MEDS: Multivitamins/Minerals TAB PO SCH (08:49)
[2020-09-03] MEDS: Neomycin/Polym/Bacit TOP OINT 15 GM TOPICAL SCH ×2 (08:50→20:49)
[2020-09-03] MEDS: oxyCODONE/Acetamin 5/325 mg TAB PO PRN (12:05)
[2020-09-03] MEDS: Enoxaparin 40 MG/0.4 ML SYR SUBCUT SCH (12:56)
[2020-09-04 06:40] VITALS: BP 112/63
[2020-09-04] MEDS: Multivitamins/Minerals TAB PO SCH (08:26)
[2020-09-04] MEDS: Neomycin/Polym/Bacit TOP OINT 15 GM TOPICAL SCH (12:14)
[2020-09-04] MEDS: Enoxaparin 40 MG/0.4 ML SYR SUBCUT SCH (14:03)
[2020-09-04] MEDS ORDERED: oxyCODONE/Acetamin 5/325 mg TAB PO PRN (15:12)
== END 2020-09-04 16:30 | DRG 58 ==
LOC: PMRU 11:43
PROVIDERS: ADMIT Physical Medicine & Rehabilitation; ATTEND Physical Medicine & Rehabilitation

== ENCOUNTER 2021-05-20 18:59 | Observation (INO) ==
[2021-05-20] MEDS ORDERED: metroNIDAZOLE IV 500 MG/100ML 500 MG/100 ML BAG IVPB ONE (20:07)
[2021-05-20] MEDS ORDERED: Lactated Ringers 1000 ml BAG 1,000 ML IV ONE (20:07)
[2021-05-20] MEDS ORDERED: Cefepime 2 GM in NS 0.9% 50 ML 50 ML IVPB ONE (20:07)
[2021-05-20] MEDS ORDERED: NS 0.9% 50 ML 50 ML ONE (20:11)
[2021-05-20 20:39] LABS: ABS Eosinophils 0.4 10^3/ul (0-0.6); ABS Lymphocytes 1.6 10^3/ul (1.0-4.8); ABS Monocytes 0.4 10^3/ul (0-0.8); ABS Neutrophils 7.5 10^3/ul (1.5-7.7); Eosinophil % 3.7 %; Hematocrit 36 % (35-47); Hemoglobin 11.9 g/dL (12.0-16.0); Lymphocyte % 16.2 %; Mean Corpuscular HGB Conc 33 g/dL (31-36); Mean Corpuscular Hemoglobin 26 pg (27-31); Mean Corpuscular Volume 80 fL (80-97); Mean Platelet Volume 8.2 fL (7.4-10.4); Platelet Count 340 10^3/uL (150-450); Red Blood Count 4.52 10^6 /uL (3.70-4.87); Red Cell Distribution Width 17 % (10-15); White Blood Count 9.9 10^3/uL (3.5-10.8)
[2021-05-20 21:04] LABS: Albumin 4.1 g/dL (3.2-5.2); Albumin/Globulin Ratio 1.2 (1-3); C Reactive Protein 41.96 mg/L (<8.01); Calcium 9.5 mg/dL (8.6-10.3); Globulin 3.3 g/dL (2-4); Potassium 3.9 mmol/L (3.5-5.0); Total Bilirubin 0.3 mg/dL (0.2-1.0); Total Protein 7.4 g/dL (6.4-8.9)
[2021-05-20] MEDS ORDERED: Ondansetron 4 mg VIAL 2 MG/ML 2 ml VIAL IV PRN (21:57)
[2021-05-20] MEDS ORDERED: Al Hydrox/Mg Hydrox/Simet LIQ 30 ML UDC PO PRN (21:57)
[2021-05-20] MEDS ORDERED: Cefepime 2 GM in Dextrose 2 GM/50 ML BAG IV ONE (22:00)
[2021-05-20] MEDS ORDERED: Vancomycin 2,000 MG in NS 0.9% 500 ml BAG 500 ML IVPB ONE (22:00)
[2021-05-20] MEDS ORDERED: Vancomycin per Pharmacy 1 EA NOTE FOLLOW UP SCH (22:00)
[2021-05-21] LABS: Rapid COVID-19 Molecular Undetected (Undetected)
[2021-05-21] MEDS ORDERED: Vancomycin 1000 MG in NS 0.9% 250 ML IVPB ONE (03:45)
[2021-05-21] MEDS ORDERED: metroNIDAZOLE IV 500 MG/100ML 500 MG/100 ML BAG IVPB SCH (06:00)
[2021-05-21] MEDS: Cefepime 1 GM in Dextrose 1 GM/50 ML BAG IV SCH ×3 (06:39→22:57)
[2021-05-21] MEDS: Enoxaparin 40 MG/0.4 ML SYR SUBCUT SCH ×2 (07:02→21:36)
[2021-05-21 07:38] LABS: ABS Basophils 0.1 10^3/ul (0-0.2); ABS Eosinophils 0.3 10^3/ul (0-0.6); ABS Lymphocytes 1.8 10^3/ul (1.0-4.8); ABS Monocytes 0.5 10^3/ul (0-0.8); ABS Neutrophils 7.7 10^3/ul (1.5-7.7); Eosinophil % 2.9 %; Hematocrit 34 % (35-47); Hemoglobin 11.3 g/dL (12.0-16.0); Lymphocyte % 17.2 %; Mean Corpuscular HGB Conc 33 g/dL (31-36); Mean Corpuscular Hemoglobin 27 pg (27-31); Mean Corpuscular Volume 80 fL (80-97); Mean Platelet Volume 8.1 fL (7.4-10.4); Platelet Count 324 10^3/uL (150-450); Red Blood Count 4.26 10^6 /uL (3.70-4.87); Red Cell Distribution Width 17 % (10-15); White Blood Count 10.4 10^3/uL (3.5-10.8)
[2021-05-21 07:47] LABS: Calcium 9.1 mg/dL (8.6-10.3); Potassium 3.8 mmol/L (3.5-5.0)
[2021-05-21] MEDS: Nystatin TOP POWDER 15 GM BTL TOPICAL SCH ×2 (11:58→21:36)
[2021-05-21] MEDS: Vancomycin 1000 MG in NS 0.9% 250 ML IVPB SCH ×2 (14:17→21:36)
[2021-05-21] MEDS: metroNIDAZOLE IV 500 MG/100ML 500 MG/100 ML BAG IVPB SCH (17:13)
[2021-05-22] MEDS: metroNIDAZOLE IV 500 MG/100ML 500 MG/100 ML BAG IVPB SCH ×3 (02:20→17:16)
[2021-05-22] MEDS: Vancomycin 1000 MG in NS 0.9% 250 ML IVPB SCH ×2 (04:37→14:02)
[2021-05-22 05:40] LABS: ABS Basophils 0.1 10^3/ul (0-0.2); ABS Eosinophils 0.4 10^3/ul (0-0.6); ABS Lymphocytes 1.5 10^3/ul (1.0-4.8); ABS Monocytes 0.5 10^3/ul (0-0.8); ABS Neutrophils 7.2 10^3/ul (1.5-7.7); Eosinophil % 3.8 %; Hematocrit 35 % (35-47); Hemoglobin 11.5 g/dL (12.0-16.0); Lymphocyte % 15.6 %; Mean Corpuscular HGB Conc 33 g/dL (31-36); Mean Corpuscular Hemoglobin 26 pg (27-31); Mean Corpuscular Volume 80 fL (80-97); Platelet Count 343 10^3/uL (150-450); Red Blood Count 4.42 10^6 /uL (3.70-4.87); Red Cell Distribution Width 18 % (10-15); White Blood Count 9.7 10^3/uL (3.5-10.8)
[2021-05-22 05:56] LABS: C Reactive Protein 48.42 mg/L (<8.01); Calcium 9.2 mg/dL (8.6-10.3); Potassium 3.8 mmol/L (3.5-5.0)
[2021-05-22] MEDS: Cefepime 1 GM in Dextrose 1 GM/50 ML BAG IV SCH ×3 (06:37→22:08)
[2021-05-22] MEDS: Nystatin TOP POWDER 15 GM BTL TOPICAL SCH ×2 (08:57→22:08)
[2021-05-22] MEDS ORDERED: Vancomycin Trough Check NOTE FOLLOW UP ONE (12:30)
[2021-05-22 13:40] LABS: Vancomycin Trough 19.7 mcg/mL
[2021-05-22] MEDS: Enoxaparin 40 MG/0.4 ML SYR SUBCUT SCH (22:08)
[2021-05-23] MEDS: metroNIDAZOLE IV 500 MG/100ML 500 MG/100 ML BAG IVPB SCH ×3 (01:33→17:30)
[2021-05-23] MEDS: Cefepime 1 GM in Dextrose 1 GM/50 ML BAG IV SCH ×2 (05:41→12:24)
[2021-05-23] MEDS: Vancomycin 1,500 MG in NS 0.9% 250 ml 250 ML IVPB SCH ×2 (06:52→19:28)
[2021-05-23] MEDS: Nystatin TOP POWDER 15 GM BTL TOPICAL SCH ×2 (08:05→21:10)
[2021-05-23] MEDS: Enoxaparin 40 MG/0.4 ML SYR SUBCUT SCH (21:10)
[2021-05-24] MEDS: Vancomycin 1,500 MG in NS 0.9% 250 ml 250 ML IVPB SCH (05:48)
[2021-05-24 06:53] LABS: ABS Eosinophils 0.5 10^3/ul (0-0.6); ABS Lymphocytes 1.8 10^3/ul (1.0-4.8); ABS Monocytes 0.5 10^3/ul (0-0.8); ABS Neutrophils 7.5 10^3/ul (1.5-7.7); Eosinophil % 5.1 %; Hematocrit 38 % (35-47); Hemoglobin 12.2 g/dL (12.0-16.0); Lymphocyte % 17.5 %; Mean Corpuscular HGB Conc 32 g/dL (31-36); Mean Corpuscular Hemoglobin 26 pg (27-31); Mean Corpuscular Volume 81 fL (80-97); Mean Platelet Volume 7.8 fL (7.4-10.4); Platelet Count 363 10^3/uL (150-450); Red Blood Count 4.67 10^6 /uL (3.70-4.87); Red Cell Distribution Width 17 % (10-15); White Blood Count 10.4 10^3/uL (3.5-10.8)
[2021-05-24 07:13] LABS: C Reactive Protein 26.11 mg/L (<8.01); Calcium 9.5 mg/dL (8.6-10.3); Potassium 4.1 mmol/L (3.5-5.0)
[2021-05-24] MEDS: Nystatin TOP POWDER 15 GM BTL TOPICAL SCH (09:50)
[2021-05-24 11:22] VITALS: BP 135/65
[2021-05-25] MEDS ORDERED: Vancomycin Trough Check NOTE FOLLOW UP ONE (05:30)
== END 2021-05-24 15:00 | disposition home or self-care (01) | DRG 380 ==
LOC: ED 18:59 → INTOOBSV 21:57 → SUATTDRO 21:57 → EDHOLD 22:05 → MED 05-21 01:13
PROVIDERS: ADMIT Hospitalist; ATTEND Internal Medicine